=== PATIENT | female | born 1990 ===

== ENCOUNTER 2023-10-15 10:59 | Emergency (ER) | payer OTHER, SELFPAY ==
--- NOTE | ~2023-10-15 | US_ITS ---
EXAMINATION: US OBSTETRICAL ULTRASOUND CLINICAL INFORMATION: Abdominal pain and cramping with question of miscarriage COMPARISON: None available. LMP: Unsure. Gestational age by maternal dates cannot be calculated. Estimated date of delivery by maternal dates cannot be calculated. TECHNIQUE: Transabdominal ultrasound was performed FINDINGS: A gestational sac is present with smaller than normal volume of fluid. A pole is seen with a crown-rump length of 2.4 cm which corresponds to a gestational age of 9 weeks 1 day with an VICTORIANO of 05/18/2024. However, heart activity or motion is not detected. In addition, a large area of subchorionic hemorrhage is seen. The right ovary measures 2.7 x 1.1 x 1.8 cm and appears normal. Left ovary measures 4.3 x 2.6 x 2.8 cm and contains a benign 2.0 cm cyst. US/US OB <= 14 weeks fetus IMPRESSION: A pole is seen with no heartbeat detected and no motion is seen. Based upon the size and estimated age of 9 weeks 1 day, these should most certainly be present. There is a subchorionic hemorrhage present. Findings are consistent with intrauterine demise.
[2023-10-15 11:30] VITALS: BP 111/73; PULSE 80; RESP 17; TEMP 36.8; O2SAT 100; BMI 20.3
--- NOTE | 2023-10-15 11:47 | ED_ITS ---
HPI - General Adult General Chief complaint: OB Stated complaint: miscarraige? Time Seen by Provider: 10/15/23 16:36 Source: patient Mode of arrival: ambulatory Limitations: no limitations History of Present Illness ED Provider: German Cooney PA-C HPI narrative: 33 yo female A1 presents to the ED for known miscarriage and wants evaluation. patient states she is and last week at [facility] ultrasound showed an IUP with no heart rate. Patient now lives in [facility] so came to the ED for evaluation. patient states no vaginal bleeding. patient states mild lower abdominal crmaping that resolved. Related Data Allergies Allergy/AdvReac Type Severity Reaction Status Date / Time No Known Allergies Allergy Verified 10/15/23 11:33 Review of Systems 2 Review of Systems: known miscarraige. resolved lower abdominal cramping. Yes all other systems are reviewed and are negative Physical Exam ED Vital Signs: Vital Signs - 24 hr 10/15/23 11:30 10/15/23 18:24 Temperature 98.3 F 98.3 F Pulse Rate 80 80 Respiratory Rate 17 17 Blood Pressure 111/73 111/73 Pulse Oximetry 100 100 Oxygen Delivery Method Room Air Room Air BMI result Body Mass Index 20.3 Const General: cooperative, healthy appearing, comfortable, no acute distress, well developed, alert, awake and Physically active Orientation/consciousness: patient oriented x3 HENMT Head: Yes normal to inspection, Yes No palpable skull fracture present, Yes normocephalic and Yes atraumatic Eyes General: appearance normal, both eyes and all related structures Neck Neck: Yes normal visual inspection, Yes full ROM, Yes no lymphadenopathy, Yes no meningeal signs, Yes trachea midline, Yes supple, No anterior neck swelling and No tender Chest Chest palpation & inspection: normal inspection of the chest and normal palpation of entire chest wall Resp Effort & Inspection: normal respiratory effort and able to speak in complete sentences Auscultation: clear to auscultation bilaterally Cardio Jugular venous distension: no JVD Heart sounds: S1 normal heart sound present and S2 normal heart sound present GI Other: negative vaginal bleeding. cervical os is closed. Inspection: Yes normal to inspection Palpation (GI): Soft to palpation, not firm, nontender, no guarding and not rigid General: Yes no CVA tenderness External Female Exam: normal external appearance Speculum Exam - Vagina: normal appearance of the vagina Speculum Exam - Cervix: normal appearance of the cervix Bimanual exam- vagina & uterus: normal bimanual exam Back/Spine/Pelvis Back: no CVA tenderness and No back tenderness Skin General skin exam: no rashes or lesions noted, elasticity normal and turgor normal Neuro General: patient oriented x3, gait normal, tone normal, moves all extremities, Normal light touch and pain sensation, no meningeal signs, no focal motor deficits, CN's II-XI intact bilaterally and normal sensation to monofilament Extrem General: Yes normal to inspection, Yes full ROM and Yes capillary refill normal Psych Appearance: grossly normal, well kempt and not disheveled Course Course Course Narrative: RME: DOne by DEMETRI Cooney. 33-year-old female who is was informed last week that she had a miscarriage in [place]. Patient having abdominal cramping so she came to the ED to be evaluated. Patient was not able to have follow-up. Patient denies any vaginal bleeding. Labs repeat ultrasound ordered. Medical Decision Making Medical Decision Making [facility] Narrative: 33-year-old G3, P2, A1 about 9 weeks presents to ED for evaluation for a miscarriage. Patient was informed last week and [place] that she had miscarriage in the baby had no heartbeat. Patient states mild abdominal cramping that resolved. Patient states since she lives now in [place] and came to the ED to be evaluated. Abdomen exam benign. Pelvic exam negative for any vaginal bleeding. Cervical os is closed. Negative for adnexal tenderness. Patient is hemodynamically stable. Case discussed with Dr. Francois he recommends patient be discharged and follow-up with his clinic. He states patient should call his office tomorrow to make an appointment to discuss medical versus surgical management. Patient explained worrisome signs and informed to return to the ED immediately. Ultrasound shows demise Differential Diagnosis Differential Diagnoses: The differential diagnosis associated with the presentation includes ( demise, threatened , complete , UTI) Consult Healthcare Provider Management of the patient was discussed with: Front Desk Assistant (Dr. Francois) Lab Data [facility] Lab Attestation statement: I reviewed the patient's lab results. 10/15/23 12:17 10/15/23 12:17 Labs: Lab Results 10/15/23 10/15/23 10/15/23 Range/Units 12:17 12:18 12:19 WBC 4.9 (4.8-10.8) X10*3/uL RBC 3.91 L (4.20-5.50) X10*6/uL Hgb 11.1 L (12.0-16.0) g/dl Hct 33.5 L (37.0-47.0) % MCV 85.7 (80.0-98.0) fL MCH 28.4 (27.0-33.0) pg MCHC 33.1 (31.0-35.0) g/dl RDW 13.2 (11.0-16.0) % Plt Count 332 (160-400) X10*3/uL MPV 8.9 L (9.4-12.3) fL Immature Gran % (Auto) 0.2 (0.0-0.4) % Neut % (Auto) 48.7 (45-73) % Lymph % (Auto) 39.4 (20-40) % [place] % (Auto) 8.7 (2-11) % Eos % (Auto) 1.6 (0-4) % Baso % (Auto) 1.4 (0-2) % Lymph # (Auto) 1.9 (1.2-4.9) X10*3/uL [place] # (Auto) 0.4 (0.1-1.2) X10*3/uL Eos # (Auto) 0.1 (0.0-0.4) X10*3/uL Baso # (Auto) 0.1 (0.0-0.2) X10*3/uL Abs Immat Gran (auto) 0.01 (0.00-0.03) X10*3/uL Absolute Neuts (auto) 2.4 (2.0-8.3) x10*3/uL Absolute Nucleated RBC 0.000 (0.0-0.012) X10*3/uL Nucleated RBC % (auto) 0.0 (0.0-0.2) /100WBC PT 13.1 (11.1-13.3) SEC INR 1.1 (0.9-1.1) APTT 30.8 (26.0-36.8) SEC Sodium 138 (135-145) mmol/L Potassium 3.6 (3.3-5.1) mmol/L Chloride 108 (96-108) mmol/L Carbon Dioxide 23 (22-29) mmol/L Anion Gap 11 L (12-20) BUN 4 L (9-16) mg/dL Creatinine 0.63 (0.5-1.4) mg/dL Estim Creat Clear Calc 110.0 Estimated GFR > 60 Random Glucose 85 (60-115) mg/dL Calcium 9.6 (8.4-10.2) mg/dL Total Bilirubin 0.5 (0.0-1.0) mg/dL AST 15 (5-31) U/L ALT 10 (0-31) U/L Alkaline Phosphatase 64 (39-117) U/L Total Protein 7.4 (6.5-8.0) g/dL Albumin 4.5 (3.5-5.0) g/dL Beta HCG, Quant 25225 mIU/mL Hold Red Top See Note Urine Color Yellow Urine Appearance Clear Urine pH 7.0 (5.0-9.0) Ur Specific [place] 1.010 (1.005-1.025) Urine Protein Negative (Neg-Trace) mg/dL Urine Glucose (UA) Negative (Negative) mg/dL Urine Ketones Negative (Negative) mg/dL Urine Blood Negative (Negative) Urine Nitrite Negative (Negative) Ur Leukocyte Esterase Negative (Negative) Urine Test POSITIVE H (NEGATIVE) Blood Type O Positive Independent Interpretation I performed an independent interpretation of an: Ultrasound Radiology Impression Discussion of test interpretation with radiology: I have reviewed the radiologist's reading. Independent Historian Clinical information obtained from an independent historian. History obtained from or confirmed by: Other (Patient) External Record Review External record reviewed: Other (Prior visits) Discharge Plan Discharge Clinical Impression: demise due to miscarriage Patient Disposition: Home, Self-Care Instructions: Miscarriage (ED) Additional Instructions: Call Dr. Francois's office tomorrow to make an appointment. Return to the ED immediately for any abdominal pain, vaginal bleeding, fever, chills, nausea, vomiting, weakness, or any other concerning symptoms. US/US OB <= 14 weeks fetus IMPRESSION: A pole is seen with no heartbeat detected and no motion is seen. Based upon the size and estimated age of 9 weeks 1 day, these should most certainly be present. There is a subchorionic hemorrhage present. Findings are consistent with intrauterine demise. Referrals: Ben Francois MD [Physician] - (Intro demise 9 weeks) Interventions: ED Discharge Assessment Last Done: 10/15/23 18:24 Discharge Date/Time: 10/15/23 18:25 Print Language: Ana Parham
[2023-10-15 12:28] LABS: MANUAL DIFF FLAG NO
[2023-10-15 12:35] LABS: Basophils Absolute Auto 0.1 X10*3/uL (0.0-0.2); Basophils Percent Auto 1.4 % (0-2); Eosinophils Absolute Auto 0.1 X10*3/uL (0.0-0.4); Eosinophils Percent Auto 1.6 % (0-4); Hematocrit 33.5 % (37.0-47.0); Hemoglobin 11.1 g/dl (12.0-16.0); Imm Gran Abs Auto 0.01 X10*3/uL (0.00-0.03); Imm Gran Pct Auto 0.2 % (0.0-0.4); Lymphocytes Absolute Auto 1.9 X10*3/uL (1.2-4.9); Lymphocytes Percent Auto 39.4 % (20-40); Mean Corpuscular HGB Conc 33.1 g/dl (31.0-35.0); Mean Corpuscular Hemoglobin 28.4 pg (27.0-33.0); Mean Corpuscular Volume 85.7 fL (80.0-98.0); Mean Platelet Volume 8.9 fL (9.4-12.3); Monocytes Absolute Auto 0.4 X10*3/uL (0.1-1.2); Monocytes Percent Auto 8.7 % (2-11); Neutrophils Absolute Auto 2.4 x10*3/uL (2.0-8.3); Neutrophils Percent Auto 48.7 % (45-73); Platelet Count 332 X10*3/uL (160-400); Red Blood Count 3.91 X10*6/uL (4.20-5.50); Red Cell Distribution Width 13.2 % (11.0-16.0); White Blood Count 4.9 X10*3/uL (4.8-10.8)
[2023-10-15 12:36] LABS: UPreg QC Valid YES; Urine Pregnancy POSITIVE (NEGATIVE)
[2023-10-15 12:37] LABS: Appearance Urine Clear; Color Urine Yellow; Glucose Urine UA Negative (Negative); Leukocyte Esterase Urine Negative (Negative); Nitrite Urine Negative (Negative); Urine Blood Negative (Negative); Urine Ketones Negative (Negative); Urine Protein Negative (Neg-Trace)
[2023-10-15 12:38] LABS: INTERNATIONAL NORM RATIO 1.1 (0.9-1.1); Prothrombin Time 13.1 SEC (11.1-13.3)
[2023-10-15 12:41] LABS: Partial Thromboplastin Time 30.8 SEC (26.0-36.8)
[2023-10-15 12:58] LABS: Alanine Aminotransferase 10 U/L (0-31); Albumin Level 4.5 g/dL (3.5-5.0); Alkaline Phosphatase 64 U/L (39-117); Anion Gap 11 (12-20); Aspartate Amino Transferase 15 U/L (5-31); Bilirubin Total 0.5 mg/dL (0.0-1.0); Blood Urea Nitrogen 4 mg/dL (9-16); Calcium 9.6 mg/dL (8.4-10.2); Carbon Dioxide 23 mmol/L (22-29); Chloride 108 mmol/L (96-108); Estimated Glomerular Filt Rate > 60; Glucose Random 85 mg/dL (60-115); Potassium 3.6 mmol/L (3.3-5.1); Sodium 138 mmol/L (135-145); Total Protein 7.4 g/dL (6.5-8.0)
[2023-10-15 13:35] LABS: HCG Quantitative 44952 mIU/mL
--- NOTE | 2023-10-15 18:08 | PM.GYNCN ---
HALF SOLE FITTER - CN: HPI Data of Consult Consult date: 10/15/23 Primary Care Provider: Unknown Physician Consult Narrative Narrative: I was consulted on Kaylee Carias who is a 33 year old female 33-year-old female was recently diagnosed a week ago with missed in [place] in the emergency room but could not have any follow-up care now she moved to [place] , presented emergency room for follow-up. The patient is experiencing mild pelvic cramping with no vaginal bleeding. No other concerns blood type O positive. cc:: CC: [facility] Social History Social History Advance Directives: No Advance Directives Information Provided: No Do you have a plan to hurt others: No Plan Meds Allergies Allergy/AdvReac Type Severity Reaction Status Date / Time No Known Allergies Allergy Verified 10/15/23 11:33 HALF SOLE FITTER Physical Exam Vitals Vital signs: Temp Pulse Resp BP Pulse Ox O2 Del Method 98.3 F 80 17 111/73 100 Room Air 10/15/23 11:30 10/15/23 11:30 10/15/23 11:30 10/15/23 11:30 10/15/23 11:30 10/15/23 11:30 BMI result Body Mass Index 20.3 Additional Comments: Reported by DEMETRI Powell in the emergency room as the following: Abdomen soft nontender Pelvic exam closed cervix no vaginal bleeding, no cervical motion tenderness adnexal or uterine tenderness HALF SOLE FITTER - Results Labs 10/15/23 12:17 10/15/23 12:17 Labs: Short CBC 10/15/23 Range/Units 12:17 WBC 4.9 (4.8-10.8) X10*3/uL Hgb 11.1 L (12.0-16.0) g/dl Hct 33.5 L (37.0-47.0) % Plt Count 332 (160-400) X10*3/uL BMP 10/15/23 12:17 Sodium 138 Potassium 3.6 Chloride 108 Carbon Dioxide 23 BUN 4 L Creatinine 0.63 Calcium 9.6 Liver Function 10/15/23 Range/Units 12:17 Total Bilirubin 0.5 (0.0-1.0) mg/dL AST 15 (5-31) U/L ALT 10 (0-31) U/L Alkaline Phosphatase 64 (39-117) U/L Albumin 4.5 (3.5-5.0) g/dL Urine 10/15/23 Range/Units 12:19 Urine Color Yellow Urine Appearance Clear Urine pH 7.0 (5.0-9.0) Ur Specific [place] 1.010 (1.005-1.025) Urine Protein Negative (Neg-Trace) mg/dL Urine Glucose (UA) Negative (Negative) mg/dL Urine Test POSITIVE H (NEGATIVE) Imaging US - abdomen: Radiologist's impression: ITS Impressions Ultrasound 10/15/23 13:26 IMPRESSION: A pole is seen with no heartbeat detected and no motion is seen. Based upon the size and estimated age of 9 weeks 1 day, these should most certainly be present. There is a subchorionic hemorrhage present. Findings are consistent with intrauterine demise. Assessment and Plan (1) Missed : Status: Acute Recommended the following to DEMETRI Blanca: GC/CT to be collected, the patient needs close follow-up within 24-48 hours in the outpatient office to discuss options of treatment, instructions to be given to patient to come back to emergency room in case of vaginal bleeding and pelvic pain, fever above 100.4 I spent a total of 20 minutes reviewing the chart, communicating to the emergency room provider and documenting in the medical record
[2023-10-15 18:24] VITALS: BP 111/73; PULSE 80; RESP 17; TEMP 36.8; O2SAT 100
[2023-10-16 04:03] LABS: CT PCR NOT DETECTED (Not Detect.); NG PCR NOT DETECTED (Not Detect.)
== END 2023-10-15 18:25 | disposition home or self-care (01) ==
PROVIDERS: Physician Assistant; Emergency Provider Student in an Organized Health Care Education/Training Program
DX: O02.1 Missed abortion (principal); Z79.899 Other long term (current) drug therapy
CPT/HCPCS: 36415; 76801; 80053; 81003; 81025; 84702; 85025; 85610; 85730; 86900; 86901; 87491; 87591; 99283; 99284

== ENCOUNTER 2023-10-22 13:50 | Outpatient (AMB) | payer OTHER, SELFPAY ==
[2023-10-22 13:53] VITALS: BP 116/68; BMI 20.2
--- NOTE | 2023-10-22 13:53 | MHC.OFFVIS ---
Vital Signs 10/22/23 13:53 Height 5 ft 5 in Weight 121 lb 4.068 oz BMI 20.2 BP 116/68 Intake Visit Reasons: ER follow up Communication Equipment Repairer Required: Yes Communication Equipment Repairer Language: Cook Islander Prasad Communication Equipment Repairer Services: Communication Equipment Repairer Present (Hello Music) Communication Equipment Repairer Name: Viral # [id number] Information Interpreted: non-clinical & clinical Accompanied by: Self / Same As Patient Allergies No Known Allergies Allergy (Verified 10/22/23 13:54) HPI Comments Details: 33 year old female 33-year-old female was presented emergency room 10/14 and recently diagnosed 2 weeks prior to presentation to emergency room with missed in [place] in the emergency room but could not have any follow-up care now she moved to [place] , presented emergency room for follow-up. LMP 1st week of July 2023 making her by to date at 14 and 4 days of gestation The patient is experiencing mild pelvic cramping with no vaginal bleeding. No other concerns blood type O positive. Ultrasound done on 10/14 showed the following: A gestational sac is present with smaller than normal volume of fluid. A pole is seen with a crown-rump length of 2.4 cm which corresponds to a gestational age of 9 weeks 1 day with an VICTORIANO of 05/18/2024. However, heart activity or motion is not detected. In addition, a large area of subchorionic hemorrhage is seen. The right ovary measures 2.7 x 1.1 x 1.8 cm and appears normal. Left ovary measures 4.3 x 2.6 x 2.8 cm and contains a benign 2.0 cm cyst. Repeat pelvic ultrasound done today showed the following: There is a single intrauterine gestational sac at the fundal endometrium with visible yolk sac and embryo. Similar large subchorionic hematoma, surrounding greater than 50% of the circumference of the gestational sac. HR: Not detected CRL (crown rump length): 2.11 cm (8 weeks 6 days +/- 4 days). VICTORIANO (estimated date of delivery): 05/27/2024 +/- 4 days. MATERNAL ADNEXA: The right maternal ovary measures 3.0 x 1.9 x 1.3 cm. Normal size and appearance The left maternal ovary measures 4.2 x 3.4 x 2.3 cm. Renal size and appearance with a dominant, 2.4 cm likely physiologic ovarian follicle. There is no significant maternal adnexal mass. No maternal pelvic ascites. GC/CT were negative PFSH Social History Household Members: Spouse and Children Housing: Apartment Alcohol intake: never Patient Tobacco Use Status: Never used Tobacco Current occupational status: unemployed Sexual orientation: Straight/Heterosexual Gender identity: Female Female Reproductive History Menstrual Date of last menstrual period: 07/12/23 Total pregnancies: 3 Full term: 2 Number of Living Children: 2 Ab spontaneous: 1 Physical Exam Vital Signs: Last Vital Signs BP 116/68 10/22/23 13:53 BMI result Body Mass Index 20.2 Assessment & Plan Assessment & Plan (1) Missed : Code(s): O02.1 - Missed Category: Medical Plan: CBC, platelets, PT, PTT fibrinogen within normal Since the patient gestational age by date is 14 weeks and 4 days of gestation but by ultrasound is 10 weeks and 1 week of gestation but ultrasound might be falsely estimating a lower gestation age because of abnormal findings of this , in case the patient is 14 weeks and 4 days of gestation, she is not a candidate for misoprostol /mifepristone and since in most cases gestational age determination by LMP is more accurate, I recommended to the patient to be referred to family Clinic at [facility] for further management 10/23/2023 received a message back from family planning Clinic at [facility] that were no available appointments, recommended for the pt to go to [facility]. Discussed the case with Mallorie Xie CNM in [facility] who accepted the pt. Called the patient and Instructed the patient to go [facility] immediately for further management without any delay since she has been diagnosed with missed AB for the last 3 weeks , the patient verbalized understanding agreed with the plan especially the urgency of her clinical situation and agreed with the plan. Communication was via phone brake rider Siddharth# [id number] Orders: Orders Complete Blood Count no Diff 10/22/23 O02.1 - Missed Fibrinogen 10/22/23 O02.1 - Missed Prothrombin Time INR 10/22/23 O02.1 - Missed Mixing Study (PT/PTT) 10/22/23 O02.1 - Missed US OB <= 14 weeks fetus 10/22/23 O02.1 - Missed Coding Level of Care Code New Pt Level 3 (33056) Diagnoses Missed O02.1
== END 2023-10-23 08:17 | disposition home or self-care (01) ==
LOC: HO.HWS 13:50
PROVIDERS: Visit Provider Obstetrics & Gynecology
DX: O02.1 Missed abortion (principal)
CPT/HCPCS: 99203

== ENCOUNTER → 2023-10-22 13:50 | Outpatient (BNVA) | payer OTHER, SELFPAY | PROVIDERS: Visit Provider Obstetrics & Gynecology ==

== ENCOUNTER 2023-10-22 14:45 | Outpatient (REF) | payer OTHER, SELFPAY ==
--- NOTE | ~2023-10-22 | US_ITS ---
EXAMINATION: US OBSTETRICAL ULTRASOUND CLINICAL INFORMATION: Missed COMPARISON: First trimester OB ultrasound 10/15/2023. LMP: Not provided. TECHNIQUE: Ultrasound of the maternal pelvis is performed using transabdominal transducer. M-mode Doppler is also performed. FINDINGS: There is a single intrauterine gestational sac at the fundal endometrium with visible yolk sac and embryo. Similar large subchorionic hematoma, surrounding greater than 50% of the circumference of the gestational sac. HR: Not detected CRL (crown rump length): 2.11 cm (8 weeks 6 days +/- 4 days). VICTORIANO (estimated date of delivery): 05/27/2024 +/- 4 days. MATERNAL ADNEXA: The right maternal ovary measures 3.0 x 1.9 x 1.3 cm. Normal size and appearance The left maternal ovary measures 4.2 x 3.4 x 2.3 cm. Renal size and appearance with a dominant, 2.4 cm likely physiologic ovarian follicle. There is no significant maternal adnexal mass. No maternal pelvic ascites. US/US OB <= 14 weeks fetus IMPRESSION: Redemonstrated findings consistent with intrauterine embryonic demise and associated large subchorionic hematoma.
[2023-10-22 15:57] LABS: Hemoglobin 12.1 g/dl (12.0-16.0); Mean Corpuscular HGB Conc 32.7 g/dl (31.0-35.0); Mean Corpuscular Hemoglobin 28.6 pg (27.0-33.0); Mean Corpuscular Volume 87.5 fL (80.0-98.0); Mean Platelet Volume 10.3 fL (9.4-12.3); Platelet Count 289 X10*3/uL (160-400); Red Blood Count 4.23 X10*6/uL (4.20-5.50); Red Cell Distribution Width 13.2 % (11.0-16.0); White Blood Count 3.9 X10*3/uL (4.8-10.8)
[2023-10-22 16:03] LABS: Fibrinogen 455 MG/DL (259-690); INTERNATIONAL NORM RATIO 1.1 (0.9-1.1); Prothrombin Time 12.9 SEC (11.1-13.3)
== END 2023-10-22 14:46 | disposition home or self-care (01) ==
LOC: HO.US 14:45
PROVIDERS: Visit Provider Obstetrics & Gynecology
DX: O02.1 Missed abortion (principal)
CPT/HCPCS: 36415; 76801; 85027; 85384; 85610; 85611; 85732; 99202

== ENCOUNTER 2024-01-07 09:43 | Emergency (ER) | payer MEDICAID, SELFPAY ==
--- NOTE | 2024-01-07 | ECG_ITS ---
Test Reason : dizziness Blood Pressure : / mmHG Vent. Rate : 062 BPM Atrial Rate : 062 BPM P-R Int : 136 ms QRS Dur : 078 ms QT Int : 382 ms P-R-T Axes : 034 034 031 degrees QTc Int : 387 ms Normal sinus rhythm Normal ECG No previous ECGs available Referred By: Generic ED Physician Electronically Signed By:SIMA VILA
[2024-01-07 10:40] VITALS: BP 98/57; PULSE 68; RESP 18; TEMP 36.4; O2SAT 98; BMI 20.6
[2024-01-07 11:07] LABS: MANUAL DIFF FLAG NO
[2024-01-07 11:18] LABS: Basophils Absolute Auto 0.1 X10*3/uL (0.0-0.2); Basophils Percent Auto 1.9 % (0-2); Eosinophils Absolute Auto 0.1 X10*3/uL (0.0-0.4); Eosinophils Percent Auto 2.2 % (0-4); Hematocrit 32.8 % (37.0-47.0); Hemoglobin 10.6 g/dl (12.0-16.0); Lymphocytes Absolute Auto 1.8 X10*3/uL (1.2-4.9); Lymphocytes Percent Auto 50.1 % (20-40); Mean Corpuscular HGB Conc 32.3 g/dl (31.0-35.0); Mean Corpuscular Hemoglobin 26.8 pg (27.0-33.0); Mean Corpuscular Volume 82.8 fL (80.0-98.0); Mean Platelet Volume 8.6 fL (9.4-12.3); Monocytes Absolute Auto 0.4 X10*3/uL (0.1-1.2); Monocytes Percent Auto 10.4 % (2-11); Neutrophils Absolute Auto 1.3 x10*3/uL (2.0-8.3); Neutrophils Percent Auto 35.4 % (45-73); Platelet Count 380 X10*3/uL (160-400); Red Blood Count 3.96 X10*6/uL (4.20-5.50); Red Cell Distribution Width 13.7 % (11.0-16.0); White Blood Count 3.7 X10*3/uL (4.8-10.8)
[2024-01-07 11:25] LABS: Anion Gap 7 (12-20); Blood Urea Nitrogen 7 mg/dL (9-16); Calcium 9.2 mg/dL (8.4-10.2); Carbon Dioxide 28 mmol/L (22-29); Chloride 110 mmol/L (96-108); Creatinine Clr Calc Pharmacy 109.9; Estimated Glomerular Filt Rate > 60; Glucose Random 93 mg/dL (60-115); Potassium 3.6 mmol/L (3.3-5.1); Sodium 141 mmol/L (135-145)
--- NOTE | 2024-01-07 12:21 | ED.DIZZY ---
HPI - Dizziness General Chief Complaint: Dizziness Stated Complaint: Vertigo Time Seen by Provider: 01/07/24 12:07 Source: patient, old records reviewed and diamond blender Mode of arrival: ambulatory Limitations: no limitations History of Present Illness ED Provider: Juan Carlos Dobbs PA-C HPI Narrative: 33 yo Micronesian Creole speaking female with history of recent missed requiring treatment at [facility] in October who presents to the ER for evaluation of intermittent lightheadedness and dizziness for the last 2 months. She reports since the she has had heavier than normal periods. She wants to get back on the control injection. She reports not having an OBGYN at this time. She states the dizziness and light headedness episodes do not occur every day, they occur mostly with body position changes such as standing up quickly. It resolves with rest. No associated vision changes, numbness, weakness. No chest pain or shortness of breath. She also reports increased acid in her stomach with intermittent epigastric pains. No nausea, vomiting, diarrhea. She has been having normal bowel movements. She is not taking any medications for this. MD elicited complaint: dizziness and lightheadedness Onset (ago): month(s) Timing: episodic Severity: moderate Description: lightheadedness Context: change in body position History of similar symptoms: Yes Exacerbating factors: change in body position Relieving factors: rest and lying down Associated symptoms: abnormal vaginal bleeding Related Data Previous Rx's ?Medication ?Instructions ?Recorded famotidine 20 mg tablet (Pepcid) 20 mg PO DAILY #30 tabs 01/07/24 Allergies Allergy/AdvReac Type Severity Reaction Status Date / Time No Known Allergies Allergy Verified 01/07/24 10:41 Review of Systems Review of Systems: Yes all other systems are reviewed and are negative [facility] Social History Social History Household Members: Spouse and Children Housing: Apartment Alcohol intake: never Patient Tobacco Use Status: Never used Tobacco Smoked in Last 30 Days: No Use of substances other than those prescribed or required for medical reasons: No Advance Directives: No Advance Directives Information Provided: Yes Do you have a plan to hurt others: No Plan Current occupational status: unemployed Sexual orientation: Straight/Heterosexual Gender identity: Female Physical Exam Vital Signs: Vital Signs: Last Vital Signs Temp 97.6 F 01/07/24 10:40 Pulse 70 01/07/24 12:34 Resp 18 01/07/24 10:40 BP 111/59 L 01/07/24 12:34 Pulse Ox 98 01/07/24 10:40 O2 Del Method Room Air 01/07/24 10:40 BMI result Body Mass Index 20.6 Appearance: Alert. Oriented X3. No acute distress. Head: normocephalic, atraumatic. Eyes: Pupils equal, round and reactive to light. EOMI, no nystagmus ENT: Pharynx normal. No tonsillar swelling or exudate. Neck: Normal inspection. Neck supple. CVS: Normal heart rate and rhythm. Pulses normal. Respiratory: No respiratory distress. Breath sounds normal. Abdomen: Soft and nontender. +BS x4 Skin: Skin warm and dry. Normal skin color. Normal skin turgor. No rashes. Extremities: No lower extremity edema. No joint swelling. Neuro/psych: Oriented X 3. No motor deficit. No sensory deficit. CN II-XII intact. Normal speech and cognition. Medications Administered Discontinued Medications Generic Name Dose Route Start Last Admin Trade Name Freq PRN Reason Stop Dose Admin Meclizine HCl 50 mg 01/07/24 12:07 01/07/24 12:29 Meclizine Hcl 25 Mg Tablet PO 01/07/24 12:08 50 mg ONCE ONE Administration Medical Decision Making Medical Decision Making [facility] Narrative: 33-year-old female with recent missed that was treated at [facility] in October presents the ER for evaluation of episodic lightheadedness and dizziness with position changes along with heavy vaginal bleeding since the 2 months ago. She would like to get started back on Depo. Advised her using Micronesian Creole diamond blender that this needs to be arranged with outpatient OBGYN. Will give referral to Dr. Francois who she has seen before. Lab workup today is showing mild normocytic anemia with hemoglobin of 10.6, hematocrit of 32.8. This could explain her mild lightheadedness and dizziness symptoms. No indication for transfusion today. She had negative orthostatic vital signs. No other major metabolic derangement. Her urinalysis is negative for infection and . Examination is otherwise unremarkable and benign We discussed the need for outpatient follow-up for her medical issues. Referral for Dr Francois provided, along with other local primary care doctors in the area. All questions were answered. Patient is stable for discharge Differential Diagnosis Differential Diagnoses: The differential diagnosis associated with the presentation includes Vertigo, orthostatic hypotension, anemia, dehydration, GERD, gastritis, PUD, cardiac arrhythmia Lab Data MDM Lab Attestation statement: I reviewed the patient's lab results. Mild anemia, mild leukopenia, no major metabolic derangement or sign of dehydration 01/07/24 11:03 01/07/24 11:03 Labs: Lab Results 01/07/24 01/07/24 Range/Units 11:03 12:31 WBC 3.7 L (4.8-10.8) X10*3/uL RBC 3.96 L (4.20-5.50) X10*6/uL Hgb 10.6 L (12.0-16.0) g/dl Hct 32.8 L (37.0-47.0) % MCV 82.8 (80.0-98.0) fL MCH 26.8 L (27.0-33.0) pg MCHC 32.3 (31.0-35.0) g/dl RDW 13.7 (11.0-16.0) % Plt Count 380 D (160-400) X10*3/uL MPV 8.6 L (9.4-12.3) fL Immature Gran % (Auto) 0.0 (0.0-0.4) % Neut % (Auto) 35.4 L (45-73) % Lymph % (Auto) 50.1 H (20-40) % Smith % (Auto) 10.4 (2-11) % Eos % (Auto) 2.2 (0-4) % Baso % (Auto) 1.9 (0-2) % Lymph # (Auto) 1.8 (1.2-4.9) X10*3/uL Smith # (Auto) 0.4 (0.1-1.2) X10*3/uL Eos # (Auto) 0.1 (0.0-0.4) X10*3/uL Baso # (Auto) 0.1 (0.0-0.2) X10*3/uL Abs Immat Gran (auto) 0.00 (0.00-0.03) X10*3/uL Absolute Neuts (auto) 1.3 L (2.0-8.3) x10*3/uL Absolute Nucleated RBC 0.000 (0.0-0.012) X10*3/uL Nucleated RBC % (auto) 0.0 (0.0-0.2) /100WBC Sodium 141 (135-145) mmol/L Potassium 3.6 (3.3-5.1) mmol/L Chloride 110 H (96-108) mmol/L Carbon Dioxide 28 (22-29) mmol/L Anion Gap 7 L (12-20) BUN 7 L (9-16) mg/dL Creatinine 0.66 (0.5-1.4) mg/dL Estim Creat Clear Calc 109.9 Estimated GFR > 60 Random Glucose 93 (60-115) mg/dL Calcium 9.2 (8.4-10.2) mg/dL Urine Color Yellow Urine Appearance Clear Urine pH 6.5 (5.0-9.0) Ur Specific Spangler 1.025 (1.005-1.025) Urine Protein Negative (Neg-Trace) mg/dL Urine Glucose (UA) Negative (Negative) mg/dL Urine Ketones Trace (Negative) mg/dL Urine Blood Negative (Negative) Urine Nitrite Negative (Negative) Ur Leukocyte Esterase Negative (Negative) Urine Test NEGATIVE (NEGATIVE) Independent Interpretation I performed an independent interpretation of an: EKG Interpretation: EKG with normal sinus rhythm, ventricular rate 62 beats per minute, normal SD interval, normal QTC, no ST segment elevations or depressions External Record Review External record reviewed: Outpatient record, Prior outpatient labs and Prior outpatient radiology Prescription Management I considered prescription management with: Other (Meclizine, iron, control) Social Determinants Patient?s care significantly limited by Social Determinants of Health including: Other Social Determinant of Health (Language barrier, no local providers in the community) Critical Care Time Critical Care Time Critical Care Time: No Discharge Plan Discharge Clinical Impression: Dizziness Anemia Qualifiers: Anemia type: unspecified type Qualified Code(s): D64.9 - Anemia, unspecified Patient Disposition: Home, Self-Care Instructions: Lightheadedness (ED), Anemia (ED) Additional Instructions: Your lab workup was reassuring Your urine test was negative for infection and Take the prescribed medication as needed for your acid in the stomach. Also recommend [id number] Tums Recommend taking a multivitamin with iron. You have mild anemia. For control, recommend following up with OBGYN in the office. Call for an appointment. Until then practice safe sexual practices If you develop new or worsening symptoms call 911 or come back to the ER for further evaluation. Prescriptions: New famotidine [Pepcid] 20 mg tablet 20 mg PO DAILY Qty: 30 0RF Referrals: [facility] [Provider Group] [facility] Family Medicine [Provider Group] [facility] [Provider Group] Ben Francois MD [Physician] - Interventions: ED Discharge Assessment Last Done: 01/07/24 13:42 Discharge Date/Time: 01/07/24 13:43 Print Language: Ana Parham
[2024-01-07] MEDS: Meclizine HCl 25 MG TABLET 50 MG PO (12:29)
[2024-01-07 12:33] VITALS: BP 103/65; BP 112/67; PULSE 64; PULSE 67
[2024-01-07 12:34] VITALS: BP 111/59; PULSE 70
[2024-01-07 12:41] LABS: Appearance Urine Clear; Color Urine Yellow; Glucose Urine UA Negative (Negative); Leukocyte Esterase Urine Negative (Negative); Nitrite Urine Negative (Negative); PH 6.5 (5.0-9.0); Specific Gravity - Urine 1.025 (1.005-1.025); Urine Blood Negative (Negative); Urine Ketones Trace mg/dL (Negative); Urine Protein Negative (Neg-Trace)
[2024-01-07 12:44] LABS: UPreg QC Valid YES; Urine Pregnancy NEGATIVE (NEGATIVE)
[2024-01-07 13:42] VITALS: BP 111/59; PULSE 70; RESP 18; TEMP 36.4
== END 2024-01-07 13:43 | disposition home or self-care (01) ==
PROVIDERS: Emergency Provider Emergency Medicine
DX: R42 Dizziness and giddiness (principal); D64.9 Anemia, unspecified
CPT/HCPCS: 36415; 80048; 81003; 81025; 85025; 93005; 99283; 99284

== ENCOUNTER → 2024-01-07 10:51 | Outpatient (BNV) | payer MEDICAID, SELFPAY | PROVIDERS: Emergency Provider Emergency Medicine; Visit Provider Internal Medicine | DX: R42 Dizziness and giddiness (principal) | CPT/HCPCS: 93010 ==

== ENCOUNTER 2024-05-08 10:17 | Outpatient (REF) | payer MEDICAID, SELFPAY ==
--- NOTE | ~2024-05-08 | XR_ITS ---
EXAMINATION: XR CHEST 2 VIEWS HISTORY: HEMOPTYSIS COMPARISON: There are no prior studies for comparison. FINDINGS: PA and lateral views of the chest are submitted. The lungs are expanded and clear. There is no pleural effusion, pneumothorax, or pulmonary vascular congestion. The heart is normal in size. The bones are intact. XR/XR chest 2V IMPRESSION: Normal examination of the chest. Electronically signed by: Aniket Gomes MD 05/08/2024 10:37 AM TORSTEN
== END 2024-05-08 10:18 | disposition home or self-care (01) ==
LOC: HO.HHCX 10:17
PROVIDERS: Visit Provider Family Medicine
DX: R04.2 Hemoptysis (principal)
CPT/HCPCS: 71046

== ENCOUNTER → 2024-05-08 10:19 | Outpatient (BNV) | payer MEDICAID, SELFPAY | PROVIDERS: Visit Provider Radiology Diagnostic Radiology | DX: R04.2 Hemoptysis (principal) | CPT/HCPCS: 71046 ==

== ENCOUNTER 2024-05-09 08:49 | Outpatient (REF) | payer MEDICAID, SELFPAY ==
--- OUTSIDE RECORDS SUMMARY | 2024-05-09 09:13 | XMS_ITS | Encounter Summary ---
Author Organization [employer] Address [address] [facility] [address] [place] [address] Care Team Providers Care Location Worker Name Role Phone Betty Rodriguez DO Primary Care Provider Reason for Referral * Consultation (STAT) - Pending Review Specialty Diagnoses / Procedures Referred By Humberto andres Referred To Contact Pulmonary Disease Diagnoses Hemoptysis Betty Rodriguez DO [address] [place] [address] Phone: tel: fax: Referral ID Status Reason Start Date Expiration Date Visits Requested Visits Authorized [id number] Pending Review Specialty Services Required 05/08/2024 05/08/2025 1 1 * Imaging (Urgent) - Authorized Specialty Diagnoses / Procedures Referred By Humberto andres Referred To Contact Radiology Diagnoses Hemoptysis Procedures CT Chest w/ Contrast Betty Rodriguez DO [address] [place] [address] Phone: tel: fax: [address] Phone: tel: fax: Referral ID Status Reason Start Date Expiration Date V isits Requested Visits Authorized [id number] Authorized 05/08/2024 05/08/2025 1 1 * Imaging (Routine) - Authorized Specialty Diagnoses / Procedures Referred By Contelizabeth t Referred To Contact Radiology Diagnoses Dizziness Procedures CT Head w/o Contrast Betty Rodriguez DO [address] [place] [address] Phone: tel: fax: [address] Phone: tel: fax: Referral ID Status Reason Start Date Expiration Date V isits Requested Visits Authorized [id number] Authorized 05/08/2024 05/08/2025 1 1 * Imaging (Routine) - Authorized Specialty Diagnoses / Procedures Referred By Contac t Referred To Contact Cardiology Diagnoses Dizziness Procedures Vascular US carotid artery duplex bilateral Betty Rodriguez DO [address] [place] [address] Phone: tel: fax: [address] Phone: tel: fax: Referral ID Status Reason Start Date Expiration Date Visits Requested Visits Authorized [id number] Authorized Perform Procedure 05/08/2024 05/08/2025 1 1 * Imaging (Routine) - Authorized Specialty Diagnoses / Procedures Referred By Contac t Referred To Contact Cardiology Diagnoses Dizziness Procedures Transthoracic Echo (TTE) Complete Betty Rodriguez DO [address] [place] [address] Phone: tel: fax: [address] Phone: tel: fax: Referral ID Status Reason Start Date Expiration Date Visits Requested Visits Authorized [id number] Authorized Perform Procedure 05/08/2024 05/08/2025 1 1 Reason for Visit * Reason Comments Dizziness Headache Encounter Details Date Type Department Care Team (Latest Contact Info) Description 05/08/2024 9:20 AM EST Office Visit [facility] [address] [place] [phone] Dizziness (Primary Dx); Hemoptysis; Heartburn; Anemia, unspecified type; Encounter for other contraceptive management Social History Tobacco Use Types Packs/Day Years Used Date Smoking Tobacco: Never Assessed Comments Unknown Sex and Gender Information Value Date Recorded Sex Assigned at Female 05/08/2024 9:06 AM EST Legal Sex Female 1:46 PM EST Gender Identity Female 05/08/2024 9:06 AM EST Sexual Orientation Straight 05/08/2024 9: 06 AM EST documented as of this encounter Last Filed Vital Signs Vital Sign Reading Time Taken Comments Blood Pressure 110/72 05/08/2024 9:21 AM EST Pulse 85 05/08/2024 9:21 AM EST Temperature 36.8 ??C (98.2 ??F) 05/08/2024 9:19 AM ES T Respiratory Rate 17 05/08/2024 9:19 AM EST Oxygen Saturation 100% 05/08/2024 9:21 AM EST Inhaled Oxygen Concentration - - Weight 63.6 kg (140 lb 3.2 oz) 05/08/2024 9:19 A M EST Height - - Body Mass Index - - documented in this encounter Plan of Treatment Upcoming Encounters Date Type Department Care Team (Late st Contact Info) Description 05/15/2024 10:00 AM EST Office Visit [facility] [address] [place] [phone] Mona Lin CNM [address] [place] [phone] 06/09/2024 9:15 AM EDT Office Visit [facility] [address] [place] [phone] Betty Rodriguez DO [address] [place] [phone] Scheduled Orders Name Type Priority Associated Diagnoses Orde r Schedule T4, Free Lab Routine Dizziness Hemoptysis Heartburn Anemia, unspecified type Encounter for other contraceptive management Expected: 05/08/2024 (Approximate), Expires: 05/08/2025 Lipid Panel, Standard Lab Routine Dizziness Hemoptysis Heartburn Anemia, unspecified type Encounter for other contraceptive management Expected: 05/08/2024 (Approximate), Expires: 05/08/2025 TSH Lab Routine Dizziness Hemoptysis Heartburn Anemia, unspecified type Encounter for other contraceptive management Expected: 05/08/2024 (Approximate), Expires: 05/08/2025 Vitamin D, 25-Hydroxy, Total, Immunoassay Lab Routine Dizziness Hemoptysis Heartburn Anemia, unspecified type Encounter for other contraceptive management Expected: 05/08/2024 (Approximate), Expires: 05/08/2025 Hepatic Function Panel Lab Routine Dizziness Hemoptysis Heartburn Anemia, unspecified type Encounter for other contraceptive management Expected: 05/08/2024 (Approximate), Expires: 05/08/2025 Hemoglobin A1c Lab Routine Dizziness Hemoptysis Heartburn Anemia, unspecified type Encounter for other contraceptive management Expected: 05/08/2024 (Approximate), Expires: 05/08/2025 Basic Metabolic Panel Lab Routine Dizziness Hemoptysis Heartburn Anemia, unspecified type Encounter for other contraceptive management Expected: 05/08/2024 (Approximate), Expires: 05/08/2025 Hepatitis B surface antigen, EIA Lab Routine Dizziness Hemoptysis Heartburn Anemia, unspecified type Encounter for other contraceptive management Expected: 05/08/2024 (Approximate), Expires: 05/08/2025 Chlamydia/N. Gonorrhoeae RNA, TMA, Urogenitial Microbiology Routine Dizziness Hemoptysis Heartburn Anemia, unspecified type Encounter for other contraceptive management Ordered: 05/08/2024 HIV-1/2 Antigen and Antibodies, Fourth Generation, with Reflexes Lab Routine Dizziness Hemoptysis Heartburn Anemia, unspecified type Encounter for other contraceptive management Expected: 05/08/2024 (Approximate), Expires: 05/08/2025 Hepatitis C Antibody with Reflex to HCV, RNA, Quantitative, Real-Time PCR Lab Routine Dizziness Hemoptysis Heartburn Anemia, unspecified type Encounter for other contraceptive management Expected: 05/08/2024, Expires: 05/08/2025 RPR (Monitor) with Reflex to??Titer Lab Routine Dizziness Hemoptysis Heartburn Anemia, unspecified type Encounter for other contraceptive management Expected: 05/08/2024, Expires: 05/08/2025 Hepatitis B Surface Antibody, Qualitative Lab Routine Dizziness Hemoptysis Heartburn Anemia, unspecified type Encounter for other contraceptive management Expected: 05/08/2024 (Approximate), Expires: 05/08/2025 Hepatitis A Antibody, Total Lab Routine Dizziness Hemoptysis Heartburn Anemia, unspecified type Encounter for other contraceptive management Expected: 05/08/2024 (Approximate), Expires: 05/08/2025 Hepatitis B Core Antibody, Total Lab Routine Dizziness Hemoptysis Heartburn Anemia, unspecified type Encounter for other contraceptive management Expected: 05/08/2024 (Approximate), Expires: 05/08/2025 T-SPOT??.TB Lab Routine Dizziness Hemoptysis Heartburn Anemia, unspecified type Encounter for other contraceptive management Expected: 05/08/2024 (Approximate), Expires: 05/08/2025 Vitamin B12 (Cobalamin) and Folate Panel, Serum Lab Routine Dizziness Hemoptysis Heartburn Anemia, unspecified type Encounter for other contraceptive management Expected: 05/08/2024, Expires: 05/08/2025 Ferritin Lab Routine Dizziness Hemoptysis Heartburn Anemia, unspecified type Encounter for other contraceptive management Expected: 05/08/2024, Expires: 05/08/2025 Iron And Total Iron Binding Capacity Lab Routine Dizziness Hemoptysis Heartburn Anemia, unspecified type Encounter for other contraceptive management Expected: 05/08/2024, Expires: 05/08/2025 CBC auto differential Lab Routine Dizziness Hemoptysis Heartburn Anemia, unspecified type Encounter for other contraceptive management Expected: 05/08/2024 (Approximate), Expires: 05/08/2025 XR Chest 2 Views Imaging STAT Hemoptysis Expected: 05/08/2024, Expires: 05/08/2025 Transthoracic Echo (TTE) Complete Echocardiography Routine Dizziness Expected: 05/08/2024 (Approximate), Expires: 05/08/2026 CT Head w/o Contrast Imaging Routine Dizziness Expected: 05/08/2024, Expires: 05/08/2025 CT Chest w/ Contrast Imaging Urgent Hemoptysis Expected: 05/08/2024, Expires: 05/08/2025 Scheduled Referrals Name Type Priority Associated Diagnoses Order Schedule Referral to Pulmonology Outpatient Referral STAT Hemoptysis Expected: 05/08/2024 (Approximate), Expires: 05/08/2025 documented as of this encounter Visit Diagnoses Diagnosis Dizziness- Primary Dizziness and giddiness Hemoptysis Heartburn Anemia, unspecified type Encounter for other contraceptive management documented in this encounter Care Teams Location Worker Relationship Specialty Start Date End Date Betty Rodriguez DO [address] [place] [address] PCP - General Family Medicine 05/08/24 documented as of this encounter
--- OUTSIDE RECORDS SUMMARY | 2024-05-09 09:13 | XMS_ITS | Clinical Summary ---
Author Organization [employer] Address [address] [place] [address] [address] [place] [address] Care Team Providers Care Air Grinder Name Role Phone Betty Rodriguez DO Primary Care Provider Allergies No known active allergies Medications omeprazole OTC (PriLOSEC OTC) 20 MG EC tablet Take 1 tablet (20 mg) by mouth before breakfast. Do not crush, chew, or split. 30 tablet 3 05/08/2024 Active Active Problems No known active problems Encounters Date Type Department Care Team Description 05/08/2024 9:20 AM EST Office Visit [facility] [address] [place] [address] [phone] Dizziness (Primary Dx); Hemoptysis; Heartburn; Anemia, unspecified type; Encounter for other contraceptive management 02/12/2024 Telephone [facility] [address] [place], [place] [phone] Claudy Moore MD new patient appt from Last 3 Months Social History Tobacco Use Types Packs/Day Years Used Date Smoking Tobacco: Never Assessed Comments Unknown Sex and Gender Information Value Date Recorded Sex Assigned at Female 05/08/2024 9:06 AM EST Legal Sex Female 1:46 PM EST Gender Identity Female 05/08/2024 9:06 AM EST Sexual Orientation Straight 05/08/2024 9: 06 AM EST Last Filed Vital Signs Vital Sign Reading [...] - - Body Mass Index - - Plan of Treatment Upcoming Encounters Date Type Department Care Team (Late st Contact Info) Description 05/15/2024 10:00 AM EST Office Visit [facility] [address] [place], [place] [phone] Mona Lin CNM [address] [place], [place] [phone] 06/09/2024 9:15 AM EDT Office Visit [facility] [address] [place], [place] [phone] Betty Rodriguez DO [address] [place], [place] [phone] Health Maintenance Due Date Last Done Comments Depression Screening 1989 HIV Screening 1989 SDOH Screening 1989 Alcohol/Substance Use Screening 2001 Tobacco Screening 2001 Family Planning (PISQ) 2004 Hepatitis C Screening 2007 DTaP/Tdap/Td Vaccines (1 - Tdap) 2008 Hepatitis B Vaccines (1 of 3 - 19+ 3-dose series) 2008 Pap Smear 2010 Cervical Cancer Screening 2019 HPV/Cotest 2019 COVID-19 Vaccine ( - 2023-2 5 season) 2023 Influenza Vaccine (#1) 2023 Zoster Vaccines (1 of 2) 2039 RSV Patients and Pa tients Aged 60 years or older (1 - 1-dose 75+ series) 2064 HIB Vaccines Aged Out No longer eligi ble based on patient's age to complete this topic HPV Vaccines Aged Out No longer eligi ble based on patient's age to complete this topic Hepatitis A Vaccines Aged Out No long er eligible based on patient's age to complete this topic IPV Vaccines Aged Out No longer eligi ble based on patient's age to complete this topic Meningococcal Vaccine Aged Out No martin felipa eligible based on patient's age to complete this topic Pneumococcal Vaccine: Pediat rics (0 to 5 Years) and At-Risk Patients (6 to 49) Years) Aged Out No longer eligible b ased on patient's age to complete this topic RSV under 20 months Aged Out No longe r eligible based on patient's age to complete this topic Rotavirus Vaccines Aged Out No longer eligible based on patient's age to complete this topic [facility] Care Teams Air Grinder Relationship Specialty Start Date End Date Betty Rodriguez DO [address] [place] [address] PCP - General Family Medicine 05/08/24
[2024-05-09 10:59] LABS: MANUAL DIFF FLAG NO
[2024-05-09 11:10] LABS: Basophils Absolute Auto 0.1 X10*3/uL (0.0-0.2); Basophils Percent Auto 2.4 % (0-2); Eosinophils Absolute Auto 0.1 X10*3/uL (0.0-0.4); Eosinophils Percent Auto 2.4 % (0-4); Hematocrit 30.9 % (37.0-47.0); Hemoglobin 9.3 g/dl (12.0-16.0); Lymphocytes Absolute Auto 1.8 X10*3/uL (1.2-4.9); Lymphocytes Percent Auto 54.1 % (20-40); Mean Corpuscular HGB Conc 30.1 g/dl (31.0-35.0); Mean Corpuscular Hemoglobin 23.1 pg (27.0-33.0); Mean Corpuscular Volume 76.7 fL (80.0-98.0); Mean Platelet Volume 9.8 fL (9.4-12.3); Monocytes Absolute Auto 0.3 X10*3/uL (0.1-1.2); Monocytes Percent Auto 10.1 % (2-11); Platelet Count 370 X10*3/uL (160-400); Red Blood Count 4.03 X10*6/uL (4.20-5.50); Red Cell Distribution Width 17.4 % (11.0-16.0); White Blood Count 3.3 X10*3/uL (4.8-10.8)
[2024-05-09 11:15] LABS: Estimated Average Glucose 105 mg/dL; Hemoglobin A1C 87.9044 umol/L; Hemoglobin A1c % 5.3 % (<6.0); Total Hemoglobin (HGBA1C) 2538.6066 umol/L
[2024-05-09 11:45] LABS: Alanine Aminotransferase 19 U/L (0-31); Albumin Level 4.4 g/dL (3.5-5.0); Alkaline Phosphatase 99 U/L (39-117); Anion Gap 11 (12-20); Aspartate Amino Transferase 28 U/L (5-31); Bilirubin Direct 0.2 mg/dL (0.0-0.5); Bilirubin Total 0.5 mg/dL (0.0-1.0); Blood Urea Nitrogen 8 mg/dL (9-16); Calcium 9.2 mg/dL (8.4-10.2); Carbon Dioxide 25 mmol/L (22-29); Chloride 108 mmol/L (96-108); Cholesterol 136 mg/dL (<200); Estimated Glomerular Filt Rate > 60; Glucose Random 87 mg/dL (60-115); HDL Cholesterol 58 mg/dL (>40); Iron 30 mcg/dL (30-160); LDL Cholesterol Calculated 70 mg/dL (<100); Percent Iron Saturation 8 % (15-50); Potassium 3.9 mmol/L (3.3-5.1); Sodium 140 mmol/L (135-145); Total Iron Binding Capacity 368 mcg/dL (228-428); Total Protein 8.3 g/dL (6.5-8.0); Triglycerides 41 mg/dL (<150); Unsaturated Iron Binding 338 ug/dL
[2024-05-09 12:06] LABS: Ferritin 4 ng/mL (10-122); Free T4 (Free Thyroxine) 0.99 ng/dL (0.71-1.85); Thyroid Stimulating Hormone 2.66 uIU/mL (0.32-4.0); Vitamin D 25-OH Total 15.5 ng/mL (>30)
[2024-05-09 12:11] LABS: Folate 9.1 ng/mL (> or = 4.0); Vitamin B12 278 pg/mL (200-900)
[2024-05-09 12:47] LABS: Hepatitis A Antibody IgG REACTIVE (Nonreactive); ~Hepatitis A Antibody IgG 11.28 S/CO (0.00-0.99)
[2024-05-09 12:49] LABS: HBS Num1 2.41 mIU/mL (0-7.99); HBsAGNum1 0.35 S/CO (0.00-0.99); HIV AB/AG Nonreactive (Nonreactive); HIV Num 1 0.06 S/CO (0.00-0.99); Hepatitis B Core Antibody Nonreactive (Nonreactive); Hepatitis B Surface Antigen Negative (Negative); ~HepC Num1 0.15 S/CO (0.00-0.79); ~Hepatitis B Surface Antibody NONREACTIVE (Nonreactive); ~Hepatitis C Antibody Nonreactive (Nonreactive)
[2024-05-09 15:28] LABS: CT PCR NOT DETECTED (Not Detect.); NG PCR NOT DETECTED (Not Detect.)
[2024-05-11 15:39] LABS: RPR Rapid Plasma Reagin NON-REACTIVE (NON-REACTIVE)
[2024-05-11 23:43] LABS: TS Negative Control Passed; TS Panel A 0; TS Panel B 2; TS Positive Control Passed; TSpotTB Negative (Negative)
== END 2024-05-09 08:50 | disposition home or self-care (01) ==
LOC: HO.HHCL 08:49
PROVIDERS: Visit Provider Family Medicine
DX: R42 Dizziness and giddiness (principal); R04.2 Hemoptysis; R12 Heartburn; D64.9 Anemia, unspecified; Z30.8 Encounter for other contraceptive management
CPT/HCPCS: 80048; 80061; 80076; 82306; 82607; 82728; 82746; 83036; 83540; 84439; 84443; 85025; 86481; 86592; 86704; 86706; 86708; 86803; 87340; 87389; 87491; 87591

== ENCOUNTER 2024-06-12 | Outpatient (REF) | payer MEDICAID, SELFPAY ==
--- OUTSIDE RECORDS SUMMARY | 2024-09-04 18:05 | XMS_ITS | Encounter Summary ---
Author Organization [employer] Address [address] [facility] [address] [place] [address] Care Team Providers Care Search Engine Marketing Specialist Name Role Phone Betty Rodriguez DO Primary Care Provider + [phone] Reason for Visit * Reason Comments Med Refill Encounter Details Date Type Department Care Team (Late st Contact Info) Description 08/31/2024 Refill [facility] MEDICINE [address] [place], [place] [phone] Betty Rodriguez DO [address] [place] [address] Social History Tobacco Use Types Packs/Day Years [...] with others, in a hotel, in a correction, living outside on the street, on a [...] Care Team (Late st Contact Info) Description 12/09/2024 1:00 PM EDT Clinical Support [facility] [address] [place] [address] documented as of this encounter Visit Diagnoses Not on filedocumented in this encounter Additional Health Concerns Assessment Noted Time PHQ-9 Depression Total Score: 3 06/10/19 25 1:40 PM EDT documented as of this encounter Care Teams Search Engine Marketing Specialist Relationship Specialty Start Date End Date Betty Rodriguez DO [address] [place] [address] PCP - General Family Medicine 05/08/24 documented as of this encounter
== END 2024-06-12 00:01 | disposition home or self-care (01) ==
LOC: HO.LNP
PROVIDERS: Visit Provider Advanced Practice Midwife
DX: Z13.89 Encounter for screening for other disorder (principal)
CPT/HCPCS: 88175

== ENCOUNTER 2024-06-12 16:37 | Outpatient (REF) | payer MEDICAID, SELFPAY ==
--- OUTSIDE RECORDS SUMMARY | 2024-06-12 17:12 | XMS_ITS | Encounter Summary ---
Author Organization [email or web address] Address [address] [facility] [address] [place] [address] Care Team Providers Care Ethanol Operator Name Role Phone Betty Rodriguez DO Primary Care Provider Reason for Referral * Consultation (Routine) - Authorized Specialty Diagnoses / Procedures Referred By Humberto andres Referred To Contact Optometry Diagnoses Decreased visual acuity Betty Rodriguez DO [address] [place] [address] Phone: tel: fax: [facility] OPTOMETRY [address] [place] [phone] Phone: tel: fax: Referral ID Status Reason Start Date Expiration Date Visits Requested Visits Authorized [id number] Authorized Consult and Treat 06/09/2024 06/09/2025 1 1 Encounter Details Date Type Department Care Team (Late st Contact Info) Description 06/09/2024 9:15 AM EDT Office Visit [facility] MEDICINE [address] [place] [address] Betty Rodriguez DO [address] [place] [address] Routine history and physical examination of adult (Primary Dx); Heartburn; Anemia, unspecified type; Dizziness; Hemoptysis; Phlegm in throat; Decreased visual acuity; Other insomnia; BMI 22.0-22.9, adult; Need for vaccination Social History Tobacco Use Types Packs/Day Years Used Date Smoking Tobacco: Never Smokeless Tobacco: Never Alcohol Use Standard Drinks/Week Comments Never 0 (1 standard drink = 0.6 oz pur e alcohol) Depression Answer Date Recorded Patient Health Questionnaire-9 Score 3 06/09/2024 Patient Health Questionnaire-9 Score 3 06/09/2024 Last PHQ-9: Questionnaire Data Not on file 0 06/09/2024 Housing Stability Answer Date Recorded What is your housing situation today? I do not have housing (Staying with others, in a hotel, in a skilled nursing, living outside on the street, on a beach, in a car, or in a park 06/09/[address] you li ve. Do you have problems with any of the following? None of the above 06/09/2024 Food Insecurity Answer Date Recorded Within the past 12 months, y ou worried that your food would run out before you got money to buy more: Never True 06/09/2024 Within the past 12 months,th e food you bought just didn't last and you didn't have enough money to get more: Never True Transportation Answer Date Recorded In the past 12 months, has l ack of transportation kept you from medical appts, meetings, work or from getting things needed for daily living? No 06/09/2024 Utilities Answer Date Recorded In the past 12 months, has t he electric, gas, oil or water company threatened to shut off services in your home? No 06/09/2024 Depression Answer Date Recorded Patient Health Questionnaire-2 Score 0 06/09/2024 Internet Access Answer Date Recorded Internet Access Q1 Yes 06/09/2024 Internet Access Q2 Not on file 06/09/2024 Comments Unknown Sex and Gender Information Value Date Recorded Sex Assigned at Female 05/08/2024 9:06 AM EST Legal Sex Female 1:46 PM EST Gender Identity Female 05/08/2024 9:06 AM EST Sexual Orientation Straight 05/08/2024 9: 06 AM EST documented as of this encounter Last Filed Vital Signs Vital Sign Reading Time Taken Comments Blood Pressure 110/70 06/09/2024 9:40 AM EDT Pulse 70 06/09/2024 9:40 AM EDT Temperature 36.8 ??C (98.3 ??F) 06/09/2024 9:40 AM ED T Respiratory Rate 19 06/09/2024 9:40 AM EDT Oxygen Saturation 100% 06/09/2024 9:40 AM EDT Inhaled Oxygen Concentration - - Weight 62.3 kg (137 lb 4 oz) 06/09/2024 9:40 AM EDT Height 167.6 cm (5' 6 ) 06/09/2024 9:40 AM EDT Body Mass Index 22.15 06/09/2024 9:40 AM EDT documented in this encounter Plan of Treatment Upcoming Encounters Date Type Department Care Team (Late st Contact Info) Description 07/09/2024 9:55 AM EDT Nurse Only [facility] MEDICINE [address] [place] [address] Scheduled Referrals Name Type Priority Associated Diagnoses Orde r Schedule Referral to [facility] Eye Care Outpatient Referral Routine Decreased visual acuity Expected: 06/09/2024 (Approximate), Expires: 06/09/2025 documented as of this encounter Visit Diagnoses Diagnosis Routine history and physical examination of adult- Primary Heartburn Anemia, unspecified type Dizziness Dizziness and giddiness Hemoptysis Phlegm in throat Decreased visual acuity Other insomnia BMI 22.0-22.9, adult Need for vaccination Need for prophylactic vaccination and inoculation against unspecified single disease documented in this encounter Additional Health Concerns Assessment Noted Time PHQ-9 Depression Total Score: 3 06/10/19 25 1:40 PM EDT documented as of this encounter Care Teams Ethanol Operator Relationship Specialty Start Date End Date Betty Rodriguez DO [address] [place] [address] PCP - General Family Medicine 05/08/24 documented as of this encounter
--- OUTSIDE RECORDS SUMMARY | 2024-06-12 17:12 | XMS_ITS | Encounter Summary ---
Author Organization [employer] Address [address] [facility] 7t [place] [address] Care Team Providers Care Motorcycle Delivery Driver Name Role Phone Betty Rodriguez DO Primary Care Provider [phone] Encounter Details Date Type Department Care Team (Latest Contact Info) Description 06/09/2024 Travel Social History Tobacco Use Types Packs/Day Years [...] with others, in a hotel, in a half-way, living outside on the street, on a [...] AM EST documented as of this encounter Plan of Treatment Upcoming Encounters Date Type Department Care Team (Late st Contact Info) Description 07/09/2024 9:55 AM EDT Nurse Only [facility] MED[facility] [address] [place] [address] documented as of this encounter Visit Diagnoses Not on filedocumented in this encounter Additional Health Concerns Assessment Noted Time PHQ-9 Depression Total Score: 3 06/10/19 25 1:40 PM EDT documented as of this encounter Care Teams Motorcycle Delivery Driver Relationship Specialty Start Date End Date Betty Rodriguez DO [address] [place] [address] PCP - General Family Medicine 05/08/24 documented as of this encounter
--- OUTSIDE RECORDS SUMMARY | 2024-06-12 17:12 | XMS_ITS | Encounter Summary ---
Author Organization [employer] Address [address] [facility] 7t [place] [address] Care Team Providers Care Gis Physical Scientist Name Role Phone Betty Rodriguez DO Primary Care Provider [phone] Reason for Visit * Reason Comments Gynecologic Exam Encounter Details Date Type Department Care Team ([facility] st Contact Info) Description 06/12/2024 9:30 AM EDT Office Visit [facility] MEDICINE [address] [place], [place] [phone] Mona Lin CNM [address] [place], [place] [phone] Cervical cancer screening (Primary Dx); Vaginal odor; Abnormal uterine bleeding Social History Tobacco Use Types Packs/Day Years [...] with others, in a hotel, in a penitentiary, living outside on the street, on a [...] Access Q2 Not on file 06/09/2024 Comments No Sex and Gender Information Value Date Recorded Sex Assigned at Female 05/08/2024 9:06 AM EST Legal Sex Female 1:46 PM EST Gender Identity Female 05/08/2024 9:06 AM EST Sexual Orientation Straight 05/08/2024 9: 06 AM EST documented as of this encounter Last Filed Vital Signs Vital Sign Reading Time Taken Comments Blood Pressure 111/78 06/12/2024 9:54 AM EDT Pulse 72 06/12/2024 9:54 AM EDT Temperature 36.6 ??C (97.9 ??F) 06/12/2024 9:54 AM ED T Respiratory Rate 20 06/12/2024 9:54 AM EDT Oxygen Saturation 99% 06/12/2024 9:54 AM EDT Inhaled Oxygen Concentration - - Weight 61.9 kg (136 lb 6.4 oz) 06/12/2024 9:54 A M EDT Height 168.9 cm (5' 6.5 ) 06/12/2024 9:54 AM EDT Body Mass Index 21.69 06/12/2024 9:54 AM EDT documented in this encounter Progress Notes * Mona Lin CNM - 06/12/2024 9:30 AM EDT Subjective Patient ID: Kaylee Palma is a 34 y.o. female who presents for pap Nexplanon inserted 05/2024. Here for pap. Received 1st HBV vaccine this week. Notes some spotting off/on since Nexplanon insertion. Not sexually active for at least a week after insertion. Happy with method other than bleeding. Noted vaginal odor recently, no other vaginal/urinary symptoms Patient seen in conjunction with Melissa Hill, [employer] student. I was present for and confirmed all pertinent elements in the history, exam, assessment of the patient, and the plan of care, and agree with all findings. Review of Systems Genitourinary: Positive for menstrual problem. Negative for dyspareunia, dysuria, frequency, genital sores, hematuria, pelvic pain, urgency, vaginal bleeding, vaginal discharge and vaginal pain. No abnormal pap, no breast pain, no breast mass, no nipple discharge Objective BP 111/78 (BP Location: Left arm, Patient Position: Sitting, BP Cuff Size: Adult) Pulse 72 Temp97.9 ??F (36.6 ??C) (Temporal) Resp 20 Ht 5' 6.5 (1.689 m) Wt 136 lb 6.4 oz (61.9 kg) LMP 04/23/2024 (Approximate) SpO2 99% BMI 21.69 kg/m?? Physical Exam Exam conducted with a submersible pilot present (Mona Lin CNM). Constitutional: Appearance: Normal appearance. Chest: Breasts: Right: Normal. No swelling, bleeding, inverted nipple, mass, nipple discharge, skin change or tenderness. Left: Normal. No swelling, bleeding, inverted nipple, mass, nipple discharge, skin change or tenderness. Genitourinary: General: Normal vulva. Labia: Right: No rash, tenderness, lesion or injury. Left: No rash, tenderness, lesion or injury. Vagina: Normal. No signs of injury and foreign body. No vaginal discharge, erythema, tenderness, bleeding or lesions. Cervix: No cervical motion tenderness, discharge, friability, lesion, erythema, cervical bleeding or eversion. Uterus: Normal. Not enlarged and not tender. Adnexa: Right adnexa normal and left adnexa normal. Right: No mass, tenderness or fullness. Left: No mass, tenderness or fullness. Comments: Scant blood in vagina Lymphadenopathy: Upper Body: Right upper body: No supraclavicular or axillary adenopathy. Left upper body: No supraclavicular or axillary adenopathy. Skin: Comments: Nexplanon palpable in left arm Neurological: Mental Status: She is alert. Psychiatric: Mood and Affect: Mood normal. Behavior: Behavior normal. Assessment/Plan Diagnoses and all orders for this visit: Cervical cancer screening - Pap Smear Cotest today. Repeat 5 y if normal/HPV neg. Reviewed normal side effects and danger signs. Expect irregular bleeding, or less likely, no bleeding at all. Report if implant not palpable. Report prolonged, frequent or heavy bleeding. Remove/replace Nexplanon by 5y from insertion date. May remove any time she wants prior to that. Vaginal odor - POCT fern test, vaginal fluid manually resulted No obvious vaginitis on wet mount. If bacterial vaginosis/vulvovaginal candidiasis on pap, will treat. Abnormal uterine bleeding Reviewed options for treatment. Will trial NSAIDs as rx'd. Consider oral contraceptive pill x 6 wksif not helpful and no contraindications. Other orders - ibuprofen (IBU) 800 MG tablet; 1 tablet every 8 hours with food x 7 days. documented in this encounter Plan of Treatment Upcoming Encounters Date Type Department Care Team (Late st Contact Info) Description 07/09/2024 9:55 AM EDT Nurse Only [facility] MEDICINE [address] [place] [phone] Scheduled Orders Name Type Priority Associated Diagnoses Orde r Schedule Pap Smear Pathology and Cytology Routine Cervical cancer screening Ordered: 06/12/2024 documented as of this encounter Procedures Procedure Name Priority Date/Time Associated Diagnosis Comments POCT WET MOUNT/RAQUEL Routine 06/12/2024 10 :43 AM EDT Vaginal odor documented in this encounter Results * POCT fern test, vaginal fluid manually resulted (06/12/2024 10:43 AM EDT) RAQUEL Prep Negative Comment:pH 5, neg whiff, neg clue, neg trich, neg yeast, neg wbc Vaginal Fluid Vaginal structure / Unknown 06/12/2024 10:43 AM EDT Mona Lin CNM POINT OF CARE TEST ENTER/ EDIT ORDERABLES Final Result documented in this encounter Visit Diagnoses Diagnosis Cervical cancer screening- Primary Screening for malignant neoplasm of the cervix Vaginal odor Unspecified symptom associated with female genital organs Abnormal uterine bleeding Unspecified disorder of menstruation and other abnormal bleeding from female genital tract documented in this encounter Additional Health Concerns Assessment Noted Time PHQ-9 Depression Total Score: 3 06/10/19 25 1:40 PM EDT documented as of this encounter Care Teams Gis Physical Scientist Relationship Specialty Start Date End Date Betty Rodriguez DO [address] [place] [id number] PCP - General Family Medicine 05/08/24 documented as of this encounter
--- OUTSIDE RECORDS SUMMARY | 2024-06-12 17:12 | XMS_ITS | Encounter Summary ---
Author Organization [employer] Address [address] [facility] 7[address] [place] [address] Care Team Providers Care Flanging Operator Name Role Phone Betty Rodriguez DO Primary Care Provider [phone] Encounter Details Date Type Department Care Team (Latest Contact Info) Description 06/12/2024 Travel Social History Tobacco Use Types Packs/Day [...] with others, in a hotel, in a long term, living outside on the street, on a [...] Description 07/09/2024 9:55 AM EDT Nurse Only [facility] [address] [place] [address] documented as of this encounter Visit Diagnoses Not on filedocumented in this encounter Additional Health Concerns Assessment Noted Time PHQ-9 Depression Total Score: 3 06/10/19 25 1:40 PM EDT documented as of this encounter Care Teams Flanging Operator Relationship Specialty Start Date End Date Betty Rodriguez DO [address] [place] [address] PCP - General Family Medicine 05/08/24 documented as of this encounter
--- OUTSIDE RECORDS SUMMARY | 2024-06-12 17:13 | XMS_ITS | Clinical Summary ---
Author Organization [employer] Address [address] [facility] [facility] [address] [place] [address] Care Team Providers Care Arboreal Scientist Name Role Phone Betty Rodriguez DO Primary Care Provider [phone] Allergies No known active allergies Medications ferrous sulfate 325 (65 Fe) MG tablet Take 1 tablet (325 mg) by mouth with breakfast. 30 tablet 06/10/19 Active omeprazole OTC (PriLOSEC OTC) 20 MG EC tablet Take 1 tablet (20 mg) by mouth before breakfast. Do not crush, chew, or split. 30 tablet 06/10/19 Active cholecalcifero l (Vitamin D-3) 50 MCG (2000 UT) capsule Take 1 capsule (50 mcg) by mouth Once per day. 30 capsule 06/10/19 25 Active Multiple Vitamin (multivitamin) tablet Take 1 tablet by mouth Once per day. 30 tablet 06/10/19 Active melatonin 5 MG tablet Take 1 tablet (5 mg) by mouth if needed at bedtime (insomnia). 30 tablet 06/10/19 25 Active cetirizine (ZyrTEC) 10 MG tablet Take 1 tablet (10 mg) by mouth Once per day. 30 tablet 06/10/19 026 Active fluticasone (Flonase) 50 MCG/ACT nasal spray Administer 2 sprays into each nostril Once per day. Shake gently. Before first use, prime pump. After use, clean tip and replace cap. 16 g 06/10/19 25 026 Active ibuprofen (IBU) 800 MG tablet 1 tablet every 8 hours with food x 7 days. 21 tablet 06/13/19 25 Active omeprazole OTC (PriLOSEC OTC) 20 MG EC tablet Take 1 tablet (20 mg) by mouth before breakfast. Do not crush, chew, or split. 30 tablet 3 05/08/19 25 025 Discontinued(Re order (will not trigger notification to Pharmacy)) Ferrous Sulfate (iron) 325 (65 Fe) MG tablet Take 1 tablet (325 mg) by mouth every other day. 30 tablet 05/16/19 25 025 Discontinued cholecalcifero l (Vitamin D-3) 50 MCG (1999) capsule Take 1 capsule (50 mcg) by mouth Once per day. 30 capsule 3 05/16/19 25 025 Discontinued(Re order (will not trigger notification to Pharmacy)) ferrous sulfate 325 (65 Fe) MG tablet TAKE 1 TABLET BY MOUTH EVERY OTHER DAY 45 tablet 05/16/19 25 025 Discontinued(Re order (will not trigger notification to Pharmacy)) ibuprofen (IBU) 800 MG tablet 1 tablet every 8 hours with food x 7 days. 21 tablet 06/13/19 25 025 Discontinued Hospital, Clinic, or Other Facility Administered Medication Ordered Dose Route Frequency Start Date End Date Status etonogestrel-eluting 68 mg contraceptive implant 1 eachIndications:Family planning counseling 1 each [place] Once 05/15/2024 05/15/2024 Ended Active Problems Problem Noted Date Diagnosed Date Anemia 06/09/2024 Chronic gastroesophageal reflux disease 06/10/19 25 Healthcare maintenance 06/09/2024 Vitamin D deficiency 06/09/2024 Encounters Date Type Department Care Team Description 06/12/2024 9:30 AM EDT Office Visit [address] [address] Mona Lin CNM Cervical cancer screening (Primary Dx); Vaginal odor; Abnormal uterine bleeding 06/12/2024 Travel 06/09/2024 9:15 AM EDT Office Visit [address] [address] Betty Rodriguez DO Routine history and physical examination of adult (Primary Dx); Heartburn; Anemia, unspecified type; Dizziness; Hemoptysis; Phlegm in throat; Decreased visual acuity; Other insomnia; BMI 22.0-22.9, adult; Need for vaccination 06/09/2024 Travel 06/02/2024 Patient Outreach [facility] [place] [address] Betty Rodriguez DO Pre-visit Planning (Pre-visit planning - LVM ) 05/23/2024 Population Health Risk Score [facility] () [address] [address] Provider, Population Health Generic 05/15/2024 10:00 AM EST Office Visit [facility] [place] [address] Mona Lin CNM Family planning counseling (Primary Dx) 05/15/2024 Refill [facility] [place] [address] Mona Lin CNM 05/15/2024 Travel 05/08/2024 9:20 AM EST Office Visit [facility] [place] [address] Betty Rodriguez DO Dizziness (Primary Dx); Hemoptysis; Heartburn; Anemia, unspecified type; Encounter for other contraceptive management from Last 3 Months Immunizations Name Administration Dates Next Due Hep B, adult 06/09/2024 Family History Medical History Relation Name Comments No Known Problems Father No Known Problems Mother Relation Name Status Comments Father Alive Mother Alive Social History Tobacco Use Types Packs/Day Years Used Date Smoking Tobacco: Never Smokeless Tobacco: Never Tobacco Cessation:Counseling Given: Not Answered Alcohol Use Standard Drinks/Week Comments Never 0 [...] with others, in a hotel, in a assisted, living outside on the street, on a [...] Mass Index 21.69 06/12/2024 9:54 AM EDT Plan of Treatment Upcoming Encounters Date Type Department Care Team (Late st Contact Info) Description 07/09/2024 9:55 AM EDT Nurse Only [facility] [address] [place] [phone] Health Maintenance Due Date Last Done Comments Alcohol/Substance Use Screening 2001 DTaP/Tdap/Td Vaccines (1 - Tdap) 2008 Pap Smear 2010 Cervical Cancer Screening 2019 HPV/Cotest 2019 COVID-19 Vaccine (1 - 202-2 5 season) 2023 Influenza Vaccine (#1) 2023 Hepatitis B Vaccines (2 of 3 - 19+ 3-dose series) 07/07/2024 06/09/2024 Depression Screening 06/09/2025 06/09/2024, 06/09/2024 SDOH Screening 06/09/2025 06/09/2024 Family Planning (PISQ) 06/12/2025 06/12/2024 Tobacco Screening 06/12/2025 06/12/2024 Zoster Vaccines (1 of 2) 2039 RSV Patients and Patients Aged 60 years or older (1 - 1-dose 75+ series) 2064 HIV Screening Completed 05/09/2024 Hepatitis C Screening Completed 05/09/2024 HIB Vaccines Aged Out No longer eligi [...] age to complete this topic Pneumococcal Vaccine: Pediatrics (0 to 5 Years) and At-Risk Patients (6 to 49) Years) Aged Out No longer eligible b ased on patient's age to complete this topic RSV under 20 months Aged Out No longe r eligible based on patient's age to complete this topic Rotavirus Vaccines Aged Out No longer eligible based on patient's age to complete this topic Procedures Procedure Name Priority Date/Time Associated Diagnosis Comments POCT WET MOUNT/RAQUEL Routine 06/12/2024 10 :43 AM EDT Vaginal odor POCT , URINE Routine 05/15/2024 10:15 AM EST Family planning counseling SONAR WATCHSTANDER INSERTION/REMOVAL OF CONTRACEPTIVE CAPSULE Routine 05/15/2024 10:15 AM EST Family planning counseling CBC WITH AUTO DIFFERENTIAL Routine 05/09/2024 8:58 AM EST Dizziness Hemoptysis Heartburn Anemia, unspecified type Encounter for other contraceptive management IRON AND TOTAL IRON BINDING CAPACITY Routine 05/09/2024 8:58 AM EST Dizziness Hemoptysis Heartburn Anemia, unspecified type Encounter for other contraceptive management FERRITIN Routine 05/09/2024 8:58 AM EST Dizziness Hemoptysis Heartburn Anemia, unspecified type Encounter for other contraceptive management VITAMIN B12/FOLATE, SERUM PANEL Routine 05/09/2024 8:58 AM EST Dizziness Hemoptysis Heartburn Anemia, unspecified type Encounter for other contraceptive management T-SPOT(R).TB Routine 05/09/2024 8:58 AM EST Dizziness Hemoptysis Heartburn Anemia, unspecified type Encounter for other contraceptive management HEPATITIS B CORE AB TOTAL Routine 05/09/2024 8:58 AM EST Dizziness Hemoptysis Heartburn Anemia, unspecified type Encounter for other contraceptive management HEPATITIS A ANTIBODY, TOTAL Routine 05/09/2024 8:58 AM EST Dizziness Hemoptysis Heartburn Anemia, unspecified type Encounter for other contraceptive management HEPATITIS B SURFACE ANTIBODY, QUALITATIVE Routine 05/09/2024 8:58 AM EST Dizziness Hemoptysis Heartburn Anemia, unspecified type Encounter for other contraceptive management RPR (MONITOR) W/REFL TITER Routine 05/09/2024 8:58 AM EST Dizziness Hemoptysis Heartburn Anemia, unspecified type Encounter for other contraceptive management HEPATITIS C AB W/REFL TO HCV RNA, QN, PCR Routine 05/09/2024 8:58 AM EST Dizziness Hemoptysis Heartburn Anemia, unspecified type Encounter for other contraceptive management HIV 1/2 ANTIGEN/ANTIBODY, FOURTH GENERATION W/RFL Routine 05/09/2024 8:58 AM EST Dizziness Hemoptysis Heartburn Anemia, unspecified type Encounter for other contraceptive management HEPATITIS B SURFACE ANTIGEN, EIA Routine 05/09/2024 8:58 AM EST Dizziness Hemoptysis Heartburn Anemia, unspecified type Encounter for other contraceptive management BASIC METABOLIC PANEL Routine 05/09/2024 8:58 AM EST Dizziness Hemoptysis Heartburn Anemia, unspecified type Encounter for other contraceptive management HEMOGLOBIN A1C Routine 05/09/2024 8:58 AM EST Dizziness Hemoptysis Heartburn Anemia, unspecified type Encounter for other contraceptive management HEPATIC FUNCTION PANEL Routine 05/09/2024 8:58 AM EST Dizziness Hemoptysis Heartburn Anemia, unspecified type Encounter for other contraceptive management VITAMIN D,25-OH,TOTAL,IA Routine 05/09/2024 8:58 AM EST Dizziness Hemoptysis Heartburn Anemia, unspecified type Encounter for other contraceptive management TSH Routine 05/09/2024 8:58 AM EST Dizziness Hemoptysis Heartburn Anemia, unspecified type Encounter for other contraceptive management LIPID PANEL, STANDARD Routine 05/09/2024 8:58 AM EST Dizziness Hemoptysis Heartburn Anemia, unspecified type Encounter for other contraceptive management T4, FREE Routine 05/09/2024 8:58 AM EST Dizziness Hemoptysis Heartburn Anemia, unspecified type Encounter for other contraceptive management CHLAMYDIA/N. GONORRHOEAE RNA, TMA, UROGENITAL Routine 05/09/2024 8:58 AM EST Dizziness Hemoptysis Heartburn Anemia, unspecified type Encounter for other contraceptive management from Last 3 Months Results * POCT fern test, vaginal fluid manually resulted (06/12/2024 10:43 AM EDT) RAQUEL Prep Negative Comment:pH 5, neg whiff, neg clue, neg trich, neg yeast, neg wbc Vaginal Fluid Vaginal structure / Unknown 06/12/2024 10:43 AM EDT Mona Lin CNM POINT OF CARE TEST ENTER/ EDIT ORDERABLES Final Result * Insertion/Removal of Contraceptive Capsule (05/15/2024 10:15 AM EST) Narrative Mona Lin CNM - 05/15/2024 10:15 AM EST Mona Lin CNM ? 05/15/2024 12:12 PM Insertion/Removal of Contraceptive Capsule Date/Time: 05/15/2024 10:15 AM Performed by: Mona Lin CNM Authorized by: Mona Lin CNM ?? Confirmed correct patient, procedure, site, and patient consented: Yes ?? Participating Staff: ??Mona Lin CNM Participating Staff: ??Melissa Hill RN Consent: ??Consent obtained: ??Verbal and written ??Consent given by: ??Patient ??Procedural risks and benefits discussed: Yes ?Patient questions answered: yes ?Patient agrees, verbalizes understanding, and wants to proceed: yes ?Educational handouts given: yes ?Instructions and paperwork completed: yes ?? Indication: ??Indication: insertion of non-biodegradable drug delivery implant ?? Pre-procedure: ??Pre-procedure timeout performed: yes ?Prepped with: povidone-iodine ?Local anesthetic: 2% 2ml lidocaine. ??The site was cleaned and prepped in a sterile fashion: yes ?? Procedure: ??Procedure: ??Insertion ??Left/right: ??Left ??Preloaded contraceptive capsule trocar was placed subdermally: yes ?Visualization of implant was obtained: yes ?Contraceptive capsule was inserted and trocar removed: yes ?Visualization of notch in stylet and palpation of device: yes ?Palpation confirms placement by provider and patient: yes ?Site was closed with steri-strips and pressure bandage applied: yes ?? Mona Lin CNM IN CLINIC/BEDSIDE ORDERAB LES Final Result * POCT Urine (05/15/2024 10:15 AM EST) Preg Test, Ur Negative Negative, Indeterminate, None Detected, Invalid, Specimen unsatisfactory for evaluation, Weakly Positive QC Media Lot # [id number] Lot# Expiration Date [id number] Urine 05/15/2024 10:1 5 AM EST Mona Lin CNM POINT OF CARE TEST ENTER/ EDIT ORDERABLES Final Result * (ABNORMAL) Vitamin D, 25-Hydroxy, Total, Immunoassay (05/09/2024 8:58 AM EST) Pathologist [facility] Vitamin D 25-OH Total 15.5(L) >30 ng/mL [facility] Comment:Health Based Referen ce Values*< 20 ng/mL Vydlllbbo65-17 ng/mL Insufficient> 30 ng/mL Sufficient*Angie WERNER. N Engl J Med. 2007;357:266-280Care must be taken in interpreting Vitamin D results fromdifferent laboratories and methodologies. Published datademonstrated that results from patients undergoinghemodialysis may show a negative bias when tested withvarious automated 25-OH vitamin D assays when compared toLC-MS/MS.When testing samples from patients whose predominant form ofVitamin D is Vitamin D2, such as patients receiving VitaminD2 supplementation, results that are subtherapeutic shouldbe confirmed with another method such as LC-MS/MS. Blood Venous blood specimen / Unknown 05/09/2024 8:58 AM EST 05/09/2024 10:54 AM EST Betty Rodriguez DO LAB BLOOD ORDERABLES Final R esult [facility] [address] [place] [phone] * Vitamin B12 (Cobalamin) and Folate Panel, Serum (05/09/2024 8:58 AM EST) Pathologist [facility] Vitamin B12 278 200 - 900 pg/mL [facility] Comment:NORMAL 200-900 PG/ML INDETERMINATE 160-199 PG/ML DEFICIENT < 160 PG/ML Folate 9.1 > or = 4.0 ng/mL [facility] Comment:Reference Values:> o r = 4.0 ng/mL< 4.0 ng/mL suggests folate deficiency Methotrexate, aminopterin and folinic acid(leucovorin) are chemotherapeutic agents whose molecularstructures are similar to folate; therefore, the Architectfolate assay cannot be used for patients using these drugs. Blood 05/09/2024 8:58 AM EST 05/09/2024 10:54 AM EST Betty Rodriguez DO LAB BLOOD ORDERABLES Final R esult [facility] [address] [place] [phone] * T-SPOT??.TB (05/09/2024 8:58 AM EST) Pathologist [facility] T Spot TB Negative Negative [facility] Comment:A negative test resu lt does not exclude the possibilityof exposure to or infection with Mycobacteriumtuberculosis (M. tuberculosis). Patients with recentexposure to TB infected individuals exhibiting anegative T-SPOT.TB result should be considered forretesting within 6 weeks or if other relevant clinicalsymptoms indicate. Results from T-SPOT.TB testing mustbe used in conjunction with each individual'sepidemiological history, current medical status,and results of other diagnostic evaluations.The T-SPOT.TB test is qualitative and results arereported as positive, borderline, or negative, giventhat the test controls perform as expected. In linewith the Centers for Disease Control and Prevention's2010 recommendation to report quantitative measurementsalongside the qualitative result, the laboratoryprovides spot counts for informational purposes only.The T-SPOT.TB test should not be interpreted as aquantitative test. TS PANEL A 0 [facility] TS PANEL B 2 [facility] Negative Control Passed [facility] Positive Control Passed [facility] Comment:For additional infor mation, please refer [email or web address].[email or web address]faq/XSW888(This link is being provided for informational/educational purposes only.)THIS TEST WAS PERFORMED AT:[id number] [place] [address]ASDHIMYJACOBY MARES MD,PHD 05/09/2024 8:58 AM EST 05/09/2024 10:54 AM EST us Betty Rodriguez DO LAB BLOOD ORDERABLES Final R esult [facility] [address] [place] [address] [phone] * (ABNORMAL) CBC auto differential (05/09/2024 8:58 AM EST) White Blood Count 3.3(L) 4.8 - 10.8 X10*3/uL [facility] Red Blood Count 4.03(L) 4.20 - 5.50 X10*6/uL [facility] Hemoglobin 9.3(L) 12.0 - 16.0 g/dl [facility] Hematocrit 30.9(L) 37.0 - 47.0 % [facility] Mean Corpuscular Volume 76.7(L) 80.0 - 98.0 fL [facility] Mean Corpuscular Hemoglobin 23.1(L) 27.0 - 33.0 pg [facility] Mean Corpuscular HGB Conc 30.1(L) 31.0 - 35.0 g/dl [facility] Red Cell Distribution Width 17.4(H) 11.0 - 16.0 % [facility] Platelet Count 370 160 - 400 X10*3/uL [facility] Mean Platelet Volume 9.8 9.4 - 12.3 fL [facility] Neutrophils Percent Auto 31.0(L) 45 - 73 % [facility] Imm Gran Pct Auto 0.0 0.0 - 0.4 % [facility] Lymphocytes Percent Auto 54.1(H) 20 - 40 % [facility] Monocytes Percent Auto 10.1 2 - 11 % [facility] Eosinophils Percent Auto 2.4 0 - 4 % [facility] Basophils Percent Auto 2.4(H) 0 - 2 % [facility] NRBC Pct Auto 0.0 0.0 - 0.2 /100WBC [facility] Neutrophils Absolute Auto 1.0(L) 2.0 - 8.3 x10*3/uL [facility] Imm Gran Abs Auto 0.00 0.00 - 0.03 X10*3/uL [facility] Lymphocytes Absolute Auto 1.8 1.2 - 4.9 X10*3/uL [facility] Monocytes Absolute Auto 0.3 0.1 - 1.2 X10*3/uL [facility] Eosinophils Absolute Auto 0.1 0.0 - 0.4 X10*3/uL [facility] Basophils Absolute Auto 0.1 0.0 - 0.2 X10*3/uL [facility] NRBC Abs Auto 0.000 0.0 - 0.012 X10*3/uL [facility] Blood Venous blood specimen / Unknown 05/09/2024 8:58 AM EST 05/09/2024 10:54 AM EST Betty Rodriguez DO LAB BLOOD ORDERABLES Final R esult [facility] [address] [place] [phone] * Hepatitis C Antibody with Reflex to HCV, RNA, Quantitative, Real-Time PCR (05/09/2024 8:58 AM EST) Hepatitis C Antibody Nonreactive Nonreactive [facility] Comment:Antibodies to HCV no t detected; does not exclude early acuteHCV infection. Blood Venous blood specimen / Unknown 05/09/2024 8:58 AM EST 05/09/2024 10:54 AM EST Betty Michael DO LAB BLOOD ORDERABLES Final R esult Performing Organization Address [facility] Co de Phone Number [facility] [address] [place] [phone] * (ABNORMAL) Iron And Total Iron Binding Capacity (05/09/2024 8:58 AM EST) [facility] Iron 30 30 - 160 mcg/dL [facility] Total Iron Binding Capacity 368 228 - 428 mcg/dL [facility] Percent Iron Saturation 8(L) 15 - 50 % [facility] Unsaturated Iron Binding 338 ug/dL [facility] Blood Venous blood specimen / Unknown 05/09/2024 8:58 AM EST 05/09/2024 10:54 AM EST Betty Michael DO LAB BLOOD ORDERABLES Final R esult Performing Organization Address [facility] Co de Phone Number [facility] [address] [place] [phone] * Hepatitis A Antibody, Total (05/09/2024 8:58 AM EST) [facility] Hepatitis A Antibody IgG REACTIVE Nonreactive [facility] Comment:The presence of IgG anti-HAV implies past HAV infection(recent or distant) or vaccination against HAV. Blood Venous blood specimen / Unknown 05/09/2024 8:58 AM EST 05/09/2024 10:54 AM EST Betty Singhtim DO LAB BLOOD ORDERABLES Final R esult Performing Organization Address [facility] Co de Phone Number [facility] [address] [place] [phone] * Chlamydia/N. Gonorrhoeae RNA, TMA, Urogenitial (05/09/2024 8:58 AM EST) [facility] CT PCR NOT DETECTED Not Detect. [facility] Comment:A not detected test result does not exclude the possibilityof infection because test results can be affected byimproper specimen collection, concurrent antibiotic therapy,or the number of organisms in the specimen which may bebelow the sensitivity of the test. As with many diagnostictests, results from the Xpert CT/NG assay should beinterpreted in conjunction with other laboratory andclinical data available to the clinician.Xpert CT/NG performance has not been evaluated in patientsless than 14 years of age. The assay should not be used forthe evaluationof suspected sexual abuse or for other medico-legalindications. Additional testing is recommended in anycircumstance when false positive or false negative resultscould lead to adverse medical, social or psychologicalconsequences. NG PCR NOT DETECTED Not Detect. [facility] Comment:A not detected test result does not exclude the possibilityof infection because test results can be affected byimproper specimen collection, concurrent antibiotic therapy,or the number of organisms in the specimen which may bebelow the sensitivity of the test. As with many diagnostictests, results from the Xpert CT/NG assay should beinterpreted in conjunction with other laboratory andclinical data available to the clinician.Xpert CT/NG performance has not been evaluated in patientsless than 14 years of age. The assay should not be used forthe evaluationof suspected sexual abuse or for other medico-legalindications. Additional testing is recommended in anycircumstance when false positive or false negative resultscould lead to adverse medical, social or psychologicalconsequences. Urine Urethral structure / Unknown 05/09/2024 8:58 AM EST 05/09/2024 10:52 AM EST Narrative [facility] - 05/09/2024 3:29 PM EST Urine us Betty Rodriguez DO LAB MICROBIOLOGY - GENERAL O RDERABLES Final Result [facility] [address] [place] [phone] * Hepatitis B surface antigen, EIA (05/09/2024 8:58 AM EST) Hepatitis B Surface Ag Negative Negative [facility] Blood Venous blood specimen / Unknown 05/09/2024 8:58 AM EST 05/09/2024 10:54 AM EST us Betty Rodriguez DO LAB BLOOD ORDERABLES Final R esult Performing Organization Address [facility] Co de Phone Number [facility] [address] [place] [phone] * Hepatitis B Core Antibody, Total (05/09/2024 8:58 AM EST) Hepatitis B Core Antibody Nonreactive Nonreactive [facility] Blood Venous blood specimen / Unknown 05/09/2024 8:58 AM EST 05/09/2024 10:54 AM EST us Betty Rodriguez DO LAB BLOOD ORDERABLES Final R esult Performing Organization Address [facility] Phone Number [facility] [address] [place] [phone] * RPR (Monitor) with Reflex to??Titer (05/09/2024 8:58 AM EST) RPR (Monitor) w/Refl Titer NON-REACTI VE NON-REACT FERNY [facility] Comment:THIS TEST WAS PERFOR MED AT:[facility] [address] [id number] MCBRIDE MD Rapid Plasma Reagin Ab Titer TNP [facility] Blood Venous blood specimen / Unknown 05/09/2024 8:58 AM EST 05/09/2024 10:54 AM EST Betty Rodriguez DO LAB BLOOD ORDERABLES Final R esult Performing Organization Address [facility] Co de Phone Number [facility] [address] [place] [phone] * HIV-1/2 Antigen and Antibodies, Fourth Generation, with Reflexes (05/09/2024 8:58 AM EST) Pathologist [facility] HIV AB/AG Nonreactive Nonreactive [facility] Comment:HIV-1 p24 Ag and/or HIV-1/HIV-2 Ab not detected.A test result that is nonreactive does not exclude thepossibility of exposure to or infection with HIV-1 and/orHIV-2. Nonreactive results in this assay for individualswith prior exposure to HIV-1 and/or HIV-2 may be due toantigen and antibody levels that are below the limit ofdetection of this assay.The [employer] HIV Ag/Ab Combo assay result andsupplemental assay results should be interpreted inconjunction with the patient's clinical presentation,history and other laboratory results. If the results areinconsistent with clinical evidence, additional testing issuggested to confirm the result. Blood Venous blood specimen / Unknown 05/09/2024 8:58 AM EST 05/09/2024 10:54 AM EST Betty Rodriguez LAB BLOOD ORDERABLES Final R esult Performing Organization Address [facility]/ZIP Co de Phone Number [facility] [address] [place] [address] [phone] * Hepatitis B Surface Antibody, Qualitative (05/09/2024 8:58 AM EST) Pathologist [facility] ~Hepatitis B Surface Antibody NONREACTIVE Nonreactive [facility] Comment:Nonreactive: < 8.00 mIU/mL Blood Venous blood specimen / Unknown 05/09/2024 8:58 AM EST 05/09/2024 10:54 AM EST Betty Nervogridtim [employer] LAB BLOOD ORDERABLES Final R esult Performing Organization Address City/[facility]/ZIP Co de Phone Number [facility] [address] [place] [phone] * TSH (05/09/2024 8:58 AM EST) Pathologist [facility] Thyroid Stimulating Hormone 2.66 0.32 - 4.0 uIU/mL [facility] Comment:Note: A sustained TS H level above 2.5 uIU/mL may warrant further investigation. TSH 3rd Generation ([facility]) Blood Venous blood specimen / Unknown 05/09/2024 8:58 AM EST 05/09/2024 10:54 AM EST Betty Singhtim DO LAB BLOOD ORDERABLES Final R esult Performing Organization Address City/[facility]/ZIP Co de Phone Number [facility] [address] [place] [phone] * T4, Free (05/09/2024 8:58 AM EST) Free T4 (Free Thyroxine) 0.99 0.71 - 1.85 ng/dL [facility] Blood Venous blood specimen / Unknown 05/09/2024 8:58 AM EST 05/09/2024 10:54 AM EST Betty Michael DO LAB BLOOD ORDERABLES Final R esult Performing Organization Address City/[facility]/ZIP Co de Phone Number [facility] [address] [place] [phone] * Hemoglobin A1c (05/09/2024 8:58 AM EST) Hemoglobin A1c 5.3 <6.0 % [facility] Comment:Hemoglobin A1C Refer ence Range Adults: 4.8 - 6.0 % Non diabetic: < 6.0 % Goal: < 7.0 %Additional Action Suggested: > 8.0 %Note: Hemoglobin A1c results are invalid for patients with abnormal amounts of HbF. Blood transfusions may impact the HbA1c concentration in the patient sample. Estimated Average Glucose 105 mg/dL [facility] Comment:eAG = Estimated ave rage glucose which is %A1C expressed asaverage glucose, using the formula of the L6A-GeiuzkrShdfskx Glucose study (ADAG), Diabetes Care, Vol.31,#8,2007 Blood Venous blood specimen / Unknown 05/09/2024 8:58 AM EST 05/09/2024 10:54 AM EST Betty Rodriguez DO LAB BLOOD ORDERABLES Final R esult Performing Organization Address City/[facility] Co de Phone Number [facility] [address] [place] [phone] * (ABNORMAL) Ferritin (05/09/2024 8:58 AM EST) Ferritin 4(L) 10 - 122 ng/mL [facility] Blood Venous blood specimen / Unknown 05/09/2024 8:58 AM EST 05/09/2024 10:54 AM EST us Betty Rodriguez DO LAB BLOOD ORDERABLES Final R esult Performing Organization Address [facility] Co de Phone Number [facility] [address] [place] [phone] * (ABNORMAL) Hepatic Function Panel (05/09/2024 8:58 AM EST) Bilirubin, Total 0.5 0.0 - 1.0 mg/dL [facility] Bilirubin, Direct 0.2 0.0 - 0.5 mg/dL [facility] Aspartate Amino Transferase 28 5 - 31 U/L [facility] Alanine Aminotransferase 19 0 - 31 U/L [facility] Total Protein 8.3(H) 6.5 - 8.0 g/dL [facility] Albumin Level 4.4 3.5 - 5.0 g/dL [facility] Alkaline Phosphatase 99 39 - 117 U/L [facility] Blood Venous blood specimen / Unknown 05/09/2024 8:58 AM EST 05/09/2024 10:54 AM EST Betty Rodriguez DO LAB BLOOD ORDERABLES Final R esult Performing Organization Address City/[facility] Co de Phone Number [facility] [address] [place] [phone] * Lipid Panel, Standard (05/09/2024 8:58 AM EST) Triglycerides 41 <150 mg/dL [facility] Comment:Desirable Triglyceri de: less than 150 mg/dLBorderline High Triglyceride 150-199 mg/dLHigh Triglyceride: 200-499 mg/dLVery High Triglyceride: greater than or equal to 5OO mg/dL Cholesterol 136 <200 mg/dL [facility] Comment:Desirable Cholestero l: less than 200 mg/dLBorderline High Cholesterol: 200-239 mg/dLHigh Cholesterol: greater than 239 mg/dL LDL Cholesterol Calculated 70 <100 mg/dL [facility] Comment:Desirable LDL: less than 100 mg/dLNear Optimal/Above Optimal LDL: 110- 129 mg/dLBorderline High LDL: 130-159 mg/dLHigh LDL: 160-189 mg/dLVery High LDL: greater than or equal to 190 mg/dL HDL Cholesterol 58 >40 mg/dL [facility] Comment:Desirable HDL: great er than 40 mg/dL Note: This HDL assay may give artificially low results in patients with liver disease. Blood Venous blood specimen / Unknown 05/09/2024 8:58 AM EST 05/09/2024 10:54 AM EST us Betty Rodriguez DO LAB BLOOD ORDERABLES Final R esult [facility] [address] [place] [phone] * (ABNORMAL) Basic Metabolic Panel (05/09/2024 8:58 AM EST) Sodium 140 135 - 145 mmol/L [facility] Potassium 3.9 3.3 - 5.1 mmol/L [facility] Chloride 108 96 - 108 mmol/L [facility] Carbon Dioxide 25 22 - 29 mmol/L [facility] Anion Gap 11(L) 12 - 20 [facility] Urea Nitrogen (BUN) 8(L) 9 - 16 mg/dL [facility] Creatinine, Serum 0.61 0.5 - 1.4 mg/dL [facility] Estimated Glomerular Filt Rate >60 [facility] Comment:Chronic Kidney Disea se: Estimated GFR < 60 mL/min/[id number] Kidney Disease: Estimated GFR < 15 mL/min/1.73m2 Glucose 87 60 - 115 mg/dL [facility] Calcium 9.2 8.4 - 10.2 mg/dL [facility] Blood Venous blood specimen / Unknown 05/09/2024 8:58 AM EST 05/09/2024 10:54 AM EST us Betty Rodriguez DO LAB BLOOD ORDERABLES Final R esult [facility] [address] [place] [phone] from Last 3 Months Insurance [employer] Care Teams [employer] Scientist Relationship Specialty Start Date End Date Betty Rodriguez DO [address] [place] [address] PCP - General Family Medicine 05/08/24
[2024-06-19 10:23] LABS: HPV Genotype 16 Negative (Negative); HPV Genotype 18 Negative (Negative); HPV High Risk Negative (Negative)
== END 2024-06-12 16:38 | disposition home or self-care (01) ==
LOC: HO.HHCLNP 16:37
PROVIDERS: Visit Provider Advanced Practice Midwife
DX: Z12.4 Encounter for screening for malignant neoplasm of cervix (principal); Z11.51 Encounter for screening for human papillomavirus (HPV); Z97.5 Presence of (intrauterine) contraceptive device
CPT/HCPCS: 87626

== ENCOUNTER 2024-06-24 10:26 | Outpatient (AMB) | payer MEDICAID, SELFPAY ==
--- NOTE | 2024-06-24 10:09 | A.OFFVIS_ITS ---
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 She was referred by PCP for pulmonary evaluation for ongoing hemoptysis. She moved here from [facility] in 2023, now residing in [place]. She reports productive cough with clear sputum that is blood tinged for the past two months that has slowly decreased over time. She reports upon awakening has mucous in throat and when expectorates has thin, blood tinged mucous. She denies fevers, chills, night sweats or chest congestion that would suggest an infectious pr ocess. She denies any mouth pain, nasal congestion, post nasal drip. She denies wheezing, chest tightness. She denies any antibiotics for cough. Per referral she endorses dyspnea which is associated with dizziness secondary to positional changes, currently undergoing cardiac evaluation, however denies today. She denies prior h/o recurrent respiratory infections. She denies prior h/o asthma. PCP ordered CXR which was unremarkable and sent for CT chest which was scheduled for 06/04 however appears patient no showed. She was also sent for TB test which was negative. She denies symptoms suggestive of underlying autoimmune conditions including joint pain, joint swelling, or rashes. She denies family history of autoimmune conditions. She denies occupational exposures. She denies personal or family h/o DVT/PE. [facility] Social History (System 05/13/24 @ 08:43 by Eliane Ann) Household Members: Spouse and Children Housing: Apartment Alcohol intake: never Patient Tobacco Use Status: Never used Tobacco Current occupational status: unemployed Sexual orientation: Straight/Heterosexual Gender identity: Female Review of Systems Const Denies chills, Denies excessive sweating, Denies fever(s), Denies headache(s) and Denies night sweats Eyes Denies dry eyes, Denies irritation and Denies itchy eyes ENT Reports Normal hearing present, Denies headache(s), Denies nasal congestion, Denies nasal discharge, Denies post nasal drip and Denies sore throat Card Denies chest pain, Denies chest pain at rest, Denies chest pain with activity, Denies claudication, Denies leg edema, Denies dyspnea, Denies dyspnea on exertion, Denies orthopnea and Denies paroxysmal nocturnal dyspnea Resp Denies chest congestion, Denies pain on inspiration, Denies pain with cough, Denies dyspnea, Denies dyspnea on exertion, Denies stridor and Denies wheezing Musc Denies myalgias Neuro Reports Normal hearing present and Denies headache(s) Endo Denies excessive sweating Micheal/Lymph Denies lymphadenopathy Aller/Immun Denies itchy eyes, Denies seasonal rhinorrhea and Denies wheezing Physical Exam Vital Signs: Last Vital Signs Pulse 69 06/24/24 10:30 BP 102/64 06/24/24 10:30 Pulse Ox 100 06/24/24 10:30 Oxygen Delivery Method Room Air 06/24/24 10:30 BMI result Body Mass Index 22.6 Const General: cooperative, healthy appearing, comfortable, no acute distress, well developed and alert Orientation/consciousness: patient oriented x3 Limitations: no limitations HEENT Head: Yes normal to inspection, Yes normocephalic and Yes atraumatic Ears: hearing grossly normal bilaterally and external ears normal Eyes General: appearance normal, both eyes and all related structures Eyelids: Yes eyelids normal Sclerae: sclerae normal EOM: EOMs intact bilaterally Neck Neck: Yes normal visual inspection and Yes no lymphadenopathy Lymphatic: no lymphadenopathy noted Chest Chest palpation & inspection: normal inspection of the chest Resp Effort & Inspection: normal respiratory effort, able to speak in complete sentences, no audible wheezes, no cough, no stridor, not tachypneic, no tripod positioning and no use of accessory muscles Auscultation: clear to auscultation bilaterally Cardio Jugular venous distension: no JVD Rate: regular rate Rhythm: regular rhythm Skin Other: warm, dry General skin exam: no rashes or lesions noted Neuro General: patient oriented x3 Cranial nerves: Yes Normal hearing present Cognition (Neuro): normal cognition Gait exam (Neuro): Normal gait present Extrem General: Yes normal to inspection, Yes capillary refill normal, Yes no clubbing, cyanosis or edema and Yes no pedal edema Psych Appearance: grossly normal and well kempt Speech and movement: Normal speech and movement present and Clear speech present Affect: normal affect Attitude: cooperative Thought process: Normal thought process present Thought content: Normal thought content present Insight: Good insight present (Psych) Judgement: Good judgement present (Psych) Assessment & Plan Assessment & Plan (1) Hemoptysis: Code(s): R04.2 - Hemoptysis Category: Medical Plan Kaylee presents for pulmonary evaluation for ongoing small volume blood tinged sputum, unclear etiology. She denies any associated symptoms that would be suggestive of underlying infectious/inflammatory process. Will reenter CT order with IV contrast to assess for underlying parenchymal condition such as bronchiectasis contributing to symptoms. She is aware if large volume hemoptysis occurs to seek emergent care. All questions were answered and patient is in agreement of plan. Will follow up to review results or sooner if needed. Orders: Orders CT chest w IV con Today R04.2 - Hemoptysis Blood Urea Nitrogen Today Z01.818 - Encounter for other preprocedural examination Creatinine Today Z01.818 - Encounter for other preprocedural examination Coding Level of Care Code New Pt Level 3 (94448) Diagnoses Hemoptysis R04.2
[2024-06-24 10:30] VITALS: BP 102/64; PULSE 69; O2SAT 100; BMI 22.6
--- OUTSIDE RECORDS SUMMARY | 2024-06-24 12:32 | XMS_ITS | Clinical Summary ---
Author Organization [employer] Address [address] [facility] [address] [place] [address] Care Team Providers Care Polyethylene Bag Machine Operator Name Role Phone Betty Rodriguez DO Primary Care Provider Allergies No known active allergies Medications ferrous [...] order (will not trigger notification to Pharmacy)) cholecalcifero l (Vitamin D-3) 50 MCG (2000 [...] days. 21 tablet 06/13/19 25 025 Discontinued Active Problems Problem Noted Date Diagnosed Date Anemia 06/09/2024 Chronic gastroesophageal reflux disease 06/10/19 25 Healthcare maintenance 06/09/2024 Vitamin D deficiency 06/09/2024 Encounters Date Type Department Care Team Description 06/12/2024 9:30 AM EDT Office Visit [address] [address] Daiana Salgado CNM Cervical cancer screening (Primary Dx); Vaginal odor; Abnormal uterine bleeding 06/12/2024 Orders Only [address] [address] Daiana Salgado CNM 06/12/2024 Travel 06/09/2024 9:15 AM EDT Office Visit [address] [address] Betty Rodriguez DO Routine history and physical examination of adult (Primary Dx); Heartburn; Anemia, unspecified type; Dizziness; Hemoptysis; Phlegm in throat; Decreased visual acuity; Other insomnia; BMI 22.0-22.9, adult; Need for vaccination 06/09/2024 Travel 06/02/2024 Patient Outreach [address] [address] Betty Rodriguez DO Pre-visit Planning (Pre-visit planning - LVM ) 05/23/2024 Population Health Risk Score [facility] () Department [address] [place] [phone] Provider, Population Health Generic 05/15/2024 10:00 AM EST Office Visit [facility] [address] [place] [address] Daiana Salgado CNM Family planning counseling (Primary Dx) 05/15/2024 Refill [facility] [address] [place] [address] Daiana Salgado CNM 05/15/2024 Travel 05/08/2024 9:20 AM EST Office Visit [facility] [address] [place] [address] Betty Rodriguez DO Dizziness (Primary Dx); Hemoptysis; [...] with others, in a hotel, in a fdc, living outside on the street, on a [...] Description 07/09/2024 9:55 AM EDT Nurse Only [facility] [address] [place] [phone] Health Maintenance Due Date Last Done Comments Alcohol/Substance Use Screening 2001 DTaP/Tdap/Td Vaccines (1 - Tdap) 2008 COVID-19 Vaccine (2023-2 5 season) 2023 Influenza Vaccine (#1) 2023 Hepatitis B Vaccines (2 of 3 - 19+ 3-dose series) 07/07/2024 06/09/2024 Depression Screening 06/09/2025 06/09/2024, 06/09/2024 SDOH Screening 06/09/2025 06/09/2024 Family Planning (PISQ) 06/12/2025 06/12/2024 Tobacco Screening 06/12/2025 06/12/2024 Cervical Cancer Screening 06/12/2029 HPV/Cotest 06/12/2029 06/12/2024 Pap Smear 06/12/2029 06/12/2024 Zoster Vaccines (1 of 2) 2039 [...] 06/12/2024 10 :43 AM EDT Vaginal odor PAP SMEAR Routine 06/12/2024 12:00 AM EDT Cervical cancer screening HPV DNA, LOW/HIGH RISK Routine 06/12/2024 12:00 AM EDT POCT , URINE Routine 05/15/2024 10:15 AM EST Family planning counseling INSTRUCTIONAL SERVICES LIBRARIAN INSERTION/REMOVAL OF CONTRACEPTIVE CAPSULE Routine 05/15/2024 10:15 [...] structure / Unknown 06/12/2024 10:43 AM EDT Daiana Salgado [facility] POINT OF CARE TEST ENTER/ EDIT ORDERABLES Final Result * HPV DNA, Low/High Risk (06/12/2024 12:00 AM EDT) Pathologist [facility] HPV High Risk Negative Negative [facility] HPV Genotype 16 Negative Negative [facility] HPV Genotype 18 Negative Negative [facility] Comment:HPV testing performe d at [facility] (CLIA#[id number]), [address] [place] [address].Testing for HPV was performed using the [employer]0system. The presence of HPV in the female genital tract isassociated with a number of diseases, including cervicalcarcinoma. The HPV DNA high risk pool tests for HPV 31, 33,35, 39, 45, 51, 52, 56, 58, 59, 66 and 68. The testing forHPV 16 and 18 genotypes has also been performed. A positiveresult indicates detection of nucleic acid sequences fromone or more subtypes, whereas a negative result indicatessuch sequences were not detected. 06/12/2024 06/13/2024 6:1 5 AM EDT [facility] LAB BLOOD ORDERABLES Eileen l Result [facility] [address] [place] [phone] * Pap Smear (06/12/2024 12:00 AM EDT) Swab Cervix uteri structure / Unknown 06/12/2024 06/13/2024 6:15 AM EDT Narrative [facility] - 06/18/2024 10:48 AM EDT ----- ------- Name: Kaylee Khan ? Age/Sex: 34/F ? : 1990 Unit#: [id number] ?? Attend : ?Re06/12/24 ?Status: PRE REF ? Location: HO.LNP ?Disch: ? ----- ------- SPEC : [id number] ? RECD: 06/13/24 ? STATUS: ??SOUT ? REQ NUM: [id number] ? JAN: 06/12/24- ? SUBM DR: DAIANA SALGADO CNM ? ENTERED: ??06/13/24 ?SP TYPE: Pap Smr ?OTHR : ? ORDERED: ??Pap Smear ? Interpretation ?? Satisfactory for evaluation. ?? Negative for intraepithelial lesion or malignancy. ?? No endocervical cells seen. ?? Scant cellularity. ? HPV High Risk: ??Negative ? HPV Genotyping 16: ??Negative ?? HPV Genotyping 18: ??Negative ?Clinical Information LMP:Unknown date Previous PAP test:Unknown date/findings ? Material Received ?? ThinPrep-Cervical ----- ------- Signed (signature on file) JOI Krueger (ASCP) 06/18/24 1048 ? ----- ------- ? END OF REPORT ? us Daiana Salgado [facility] LAB CYTOLOGY ORDERABLES F inal Result [facility] [address] [place] [phone] [phone] * Insertion/Removal of Contraceptive Capsule (05/15/2024 10:15 AM EST) Daiana Roberts CNM - 05/15/2024 10:15 AM EST Daiana Salgado CNM ? 05/15/2024 12:12 PM Insertion/Removal of Contraceptive Capsule Date/Time: 05/15/2024 10:15 AM Performed by: Daiana Salgado CNM Authorized by: Daiana Salgado CNM ?? Confirmed correct patient, procedure, site, and patient consented: Yes ?? Participating Staff: ??Daiana Salgado CNM Participating Staff: ??Melissa Hill RN Consent: [...] steri-strips and pressure bandage applied: yes ?? us Daiana Salgado CNM IN CLINIC/BEDSIDE ORDERAB LES Final Result * POCT Urine (05/15/2024 10:15 AM EST) Preg Test, Ur Negative Negative, Indeterminate, None Detected, Invalid, Specimen unsatisfactory for evaluation, Weakly Positive QC Media Lot # [id number] Lot# Expiration Date [id number] Urine 05/15/2024 10:1 5 AM EST Daiana COHEN POINT OF CARE TEST ENTER/ EDIT ORDERABLES Final Result * (ABNORMAL) Vitamin D, 25-Hydroxy, Total, Immunoassay (05/09/2024 8:58 AM EST) Pathologist [facility] Vitamin D 25-OH Total 15.5(L) >30 ng/mL [facility] Comment:Health Based Referen ce Values*< 20 ng/mL Zipivmjjk00-29 ng/mL Insufficient> 30 ng/mL Sufficient*Angie WERNER. N [...] DO LAB BLOOD ORDERABLES Final R esult [facility] [address] [place] [phone] * Vitamin B12 (Cobalamin) and Folate Panel, Serum (05/09/2024 8:58 AM EST) Vitamin B12 278 200 - 900 pg/mL [facility] Comment:NORMAL 200-900 PG/ML INDETERMINATE 160-199 PG/ML DEFICIENT < 160 PG/ML Folate 9.1 > or = 4.0 ng/mL [facility] Comment:Reference Values:> o r = 4.0 ng/mL< 4.0 ng/mL suggests folate deficiency Methotrexate, aminopterin and folinic acid(leucovorin) are chemotherapeutic agents whose molecularstructures are similar to folate; therefore, the Architectfolate assay cannot be used for patients using these drugs. Blood 05/09/2024 8:58 AM EST 05/09/2024 10:54 AM EST us Betty Rodriguez DO LAB BLOOD ORDERABLES Final R esult [facility] [address] [place] [phone] * T-SPOT??.TB (05/09/2024 8:58 AM EST) T Spot TB Negative Negative [facility] Comment:A negative test resu lt does [...] as aquantitative test. TS PANEL A 0 [facility] TS PANEL B 2 [facility] Negative Control Passed [facility] Positive Control Passed [facility] Comment:For additional infor mattaisha, please refer [email or web address]/[email or web address](This link is being provided for informational/educational purposes only.)THIS TEST WAS PERFORMED AT:[id number] [place] [id number] MARES MD,PHD 05/09/2024 8:58 AM EST 05/09/2024 10:54 AM EST us Betty Rodriguez DO LAB BLOOD ORDERABLES Final R esult [facility] [address] [place] [phone] * (ABNORMAL) CBC auto differential (05/09/2024 8:58 AM EST) White Blood Count 3.3(L) 4.8 - 10.8 X10*3/uL [facility] Red Blood Count 4.03(L) 4.20 - 5.50 X10*6/uL [facility] Hemoglobin 9.3(L) 12.0 - 16.0 g/dl [facility] Hematocrit 30.9(L) 37.0 - 47.0 % [facility] Mean Corpuscular Volume 76.7(L) 80.0 - 98.0 fL [facility] Mean Corpuscular Hemoglobin 23.1(L) 27.0 - 33.0 pg [facility] Mean Corpuscular HGB Conc 30.1(L) 31.0 - 35.0 g/dl [facility] Red Cell Distribution Width 17.4(H) 11.0 - 16.0 % [facility] Platelet Count 370 160 - 400 X10*3/uL [facility] Mean Platelet Volume 9.8 9.4 - 12.3 fL [facility] Neutrophils Percent Auto 31.0(L) 45 - 73 % [facility] Imm Gran Pct Auto 0.0 0.0 - 0.4 % [facility] Lymphocytes Percent Auto 54.1(H) 20 - 40 % [facility] Monocytes Percent Auto 10.1 2 - 11 % [facility] Eosinophils Percent Auto 2.4 0 - 4 % [facility] Basophils Percent Auto 2.4(H) 0 - 2 % [facility] NRBC Pct Auto 0.0 0.0 - 0.2 /100WBC [facility] Neutrophils Absolute Auto 1.0(L) 2.0 - 8.3 x10*3/uL [facility] Imm Gran Abs Auto 0.00 0.00 - 0.03 X10*3/uL [facility] Lymphocytes Absolute Auto 1.8 1.2 - 4.9 X10*3/uL [facility] Monocytes Absolute Auto 0.3 0.1 - 1.2 X10*3/uL [facility] Eosinophils Absolute Auto 0.1 0.0 - 0.4 X10*3/uL [facility] Basophils Absolute Auto 0.1 0.0 - 0.2 X10*3/uL [facility] NRBC Abs Auto 0.000 0.0 - 0.012 X10*3/uL [facility] Blood Venous blood specimen / Unknown 05/09/2024 8:58 AM EST 05/09/2024 10:54 AM EST Betty Rodriguez DO LAB BLOOD ORDERABLES Final R [facility] Performing Organization Address City/[facility]/ZIP Co de Phone Number [facility] [address] [place] [phone] * Hepatitis C Antibody with Reflex to HCV, RNA, Quantitative, Real-Time PCR (05/09/2024 8:58 AM EST) Hepatitis C Antibody Nonreactive Nonreactive [facility] Comment:Antibodies to HCV no t detected; does not exclude early acuteHCV infection. Blood Venous blood specimen / Unknown 05/09/2024 8:58 AM EST 05/09/2024 10:54 AM EST Betty Rodriguez DO LAB BLOOD ORDERABLES Final R esult [facility] [address] [place] [phone] * (ABNORMAL) Iron And Total Iron Binding Capacity (05/09/2024 8:58 AM EST) [facility] Iron 30 30 - 160 mcg/dL [facility] Total Iron Binding Capacity 368 228 - 428 mcg/dL [facility] Percent Iron Saturation 8(L) 15 - 50 % [facility] Unsaturated Iron Binding 338 ug/dL [facility] Blood Venous blood specimen / Unknown 05/09/2024 8:58 AM EST 05/09/2024 10:54 AM EST Betty Rodriguez LAB BLOOD ORDERABLES Final R esult Performing Organization Address [facility] Co de Phone Number [facility] [address] [place] [phone] * Hepatitis A Antibody, Total (05/09/2024 8:58 AM EST) [facility] Hepatitis A Antibody IgG REACTIVE Nonreactive [facility] Comment:The presence of IgG anti-HAV implies past HAV infection(recent or distant) or vaccination against HAV. Blood Venous blood specimen / Unknown 05/09/2024 8:58 AM EST 05/09/2024 10:54 AM EST Betty Rodriguez LAB BLOOD ORDERABLES Final R esult Performing Organization Address City/[facility]/ZIP Co de Phone Number [facility] [address] [place] [phone] * Chlamydia/N. Gonorrhoeae RNA, TMA, Urogenitial (05/09/2024 8:58 AM EST) [facility] CT PCR NOT DETECTED Not Detect. [facility] Comment:A not detected test result does [...] psychologicalconsequences. NG PCR NOT DETECTED Not Detect. [facility] Comment:A not detected test result does [...] AM EST 05/09/2024 10:52 AM EST Narrative [facility] - 05/09/2024 3:29 PM EST Urine us Betty Rodriguez DO LAB MICROBIOLOGY - GENERAL O RDERABLES Final Result [facility] [address], [place] [phone] * Hepatitis B surface antigen, EIA (05/09/2024 8:58 AM EST) Hepatitis B Surface Ag Negative Negative [facility] Blood Venous blood specimen / Unknown 05/09/2024 8:58 AM EST 05/09/2024 10:54 AM EST us Betty Singhlolyrad DO LAB BLOOD ORDERABLES Final R esult Performing Organization Address City/[facility]/ZIP Co de Phone Number [facility] [address] [place] [phone] * Hepatitis B Core Antibody, Total (05/09/2024 8:58 AM EST) Hepatitis B Core Antibody Nonreactive Nonreactive [facility] Blood Venous blood specimen / Unknown 05/09/2024 8:58 AM EST 05/09/2024 10:54 AM EST Betty Singhlolyrad DO LAB BLOOD ORDERABLES Final R esult Performing Organization Address [facility] Co de Phone Number [facility] [address] [place] [phone] * RPR (Monitor) with Reflex to??Titer (05/09/2024 8:58 AM EST) RPR (Monitor) w/Refl Titer NON-REACTI VE NON-REACT FERNY [facility] Comment:THIS TEST WAS PERFOR MED AT:[id number] [place] [id number] MCBRIDE MD Rapid Plasma Reagin Ab Titer TNP [facility] Blood Venous blood specimen / Unknown 05/09/2024 8:58 AM EST 05/09/2024 10:54 AM EST us Betty Michael DO LAB BLOOD ORDERABLES Final R esult Performing Organization Address [facility]/ZIP Co de Phone Number [facility] [address] [place] [phone] * HIV-1/2 Antigen and Antibodies, Fourth Generation, with Reflexes (05/09/2024 8:58 AM EST) HIV AB/AG Nonreactive Nonreactive [facility] Comment:HIV-1 p24 Ag and/or HIV-1/HIV-2 Ab not detected.A test result that is nonreactive does not exclude thepossibility of exposure to or infection with HIV-1 and/orHIV-2. Nonreactive results in this assay for individualswith prior exposure to HIV-1 and/or HIV-2 may be due toantigen and antibody levels that are below the limit ofdetection of this assay.The [employer] HIV Ag/Ab Combo assay result andsupplemental assay results should be interpreted inconjunction with the patient's clinical presentation,history and other laboratory results. If the results areinconsistent with clinical evidence, additional testing issuggested to confirm the result. Blood Venous blood specimen / Unknown 05/09/2024 8:58 AM EST 05/09/2024 10:54 AM EST Betty Rodriguez LAB BLOOD ORDERABLES Final R esult Performing Organization Address [facility] Co de Phone Number [facility] [address] [place] [phone] * Hepatitis B Surface Antibody, Qualitative (05/09/2024 8:58 AM EST) ~Hepatitis B Surface Antibody NONREACTIVE Nonreactive [facility] Comment:Nonreactive: < 8.00 mIU/mL Blood Venous blood specimen / Unknown 05/09/2024 8:58 AM EST 05/09/2024 10:54 AM EST Betty Rodriguez LAB BLOOD ORDERABLES Final R esult Performing Organization Address [facility] Co de Phone Number [facility] [address] [place] [phone] * TSH (05/09/2024 8:58 AM EST) Thyroid Stimulating Hormone 2.66 0.32 - 4.0 uIU/mL [facility] Comment:Note: A sustained TS H level above 2.5 uIU/mL may warrant further investigation. TSH 3rd Generation ([facility]) Blood Venous blood specimen / Unknown 05/09/2024 8:58 AM EST 05/09/2024 10:54 AM EST Betty Michael DO LAB BLOOD ORDERABLES Final R esult Performing Organization Address City/[facility]/ZIP Co de Phone Number [facility] [address] [place] [phone] * T4, Free (05/09/2024 8:58 AM EST) Free T4 (Free Thyroxine) 0.99 0.71 - 1.85 ng/dL [facility] Blood Venous blood specimen / Unknown 05/09/2024 8:58 AM EST 05/09/2024 10:54 AM EST Betty Rodriguez DO LAB BLOOD ORDERABLES Final R esult Performing Organization Address City/[facility] Co de Phone Number [facility] [address] [place] [phone] * Hemoglobin A1c (05/09/2024 8:58 AM EST) Hemoglobin A1c 5.3 <6.0 % [facility] Comment:Hemoglobin A1C Refer ence Range Adults: 4.8 - 6.0 % Non diabetic: < 6.0 % Goal: < 7.0 %Additional Action Suggested: > 8.0 %Note: Hemoglobin A1c results are invalid for patients with abnormal amounts of HbF. Blood transfusions may impact the HbA1c concentration in the patient sample. Estimated Average Glucose 105 mg/dL [facility] Comment:eAG = Estimated ave rage glucose which is %A1C expressed asaverage glucose, using the formula of the W1X-EnkgjozDlygcye Glucose study (ADAG), Diabetes Care, Vol.31,#8,Oct. 2007 Blood Venous blood specimen / Unknown 05/09/2024 8:58 AM EST 05/09/2024 10:54 AM EST Result [facility] Betty Singhlolyrad DO LAB BLOOD ORDERABLES Final R esult Performing Organization Address City/[facility]/ZIP Co de Phone Number [facility] [address] [place] [phone] * (ABNORMAL) Ferritin (05/09/2024 8:58 AM EST) Ferritin 4(L) 10 - 122 ng/mL [facility] Blood Venous blood specimen / Unknown 05/09/2024 8:58 AM EST 05/09/2024 10:54 AM EST Betty Singhtim Seanodes LAB BLOOD ORDERABLES Final R esult Performing Organization Address [facility] Co de Phone Number [facility] [address] [place] [phone] * (ABNORMAL) Hepatic Function Panel (05/09/2024 8:58 AM EST) Bilirubin, Total 0.5 0.0 - 1.0 mg/dL [facility] Bilirubin, Direct 0.2 0.0 - 0.5 mg/dL [facility] Aspartate Amino Transferase 28 5 - 31 U/L [facility] Alanine Aminotransferase 19 0 - 31 U/L [facility] Total Protein 8.3(H) 6.5 - 8.0 g/dL [facility] Albumin Level 4.4 3.5 - 5.0 g/dL [facility] Alkaline Phosphatase 99 39 - 117 U/L [facility] Blood Venous blood specimen / Unknown 05/09/2024 8:58 AM EST 05/09/2024 10:54 AM EST Betty Rodriguez DO LAB BLOOD ORDERABLES Final R esult Performing Organization Address City/[facility]/ZIP Co de Phone Number [facility] [address] [place] [phone] * Lipid Panel, Standard (05/09/2024 8:58 AM EST) Triglycerides 41 <150 mg/dL [facility] Comment:Desirable Triglyceri de: less than 150 mg/dLBorderline High Triglyceride 150-199 mg/dLHigh Triglyceride: 200-499 mg/dLVery High Triglyceride: greater than or equal to 5OO mg/dL Cholesterol 136 <200 mg/dL [facility] Comment:Desirable Cholestero l: less than 200 mg/dLBorderline High Cholesterol: 200-239 mg/dLHigh Cholesterol: greater than 239 mg/dL LDL Cholesterol Calculated 70 <100 mg/dL [facility] Comment:Desirable LDL: less than 100 mg/dLNear Optimal/Above Optimal LDL: 110- 129 mg/dLBorderline High LDL: 130-159 mg/dLHigh LDL: 160-189 mg/dLVery High LDL: greater than or equal to 190 mg/dL HDL Cholesterol 58 >40 mg/dL [facility] Comment:Desirable HDL: great er than 40 mg/dL Note: This HDL assay may give artificially low results in patients with liver disease. Blood Venous blood specimen / Unknown 05/09/2024 8:58 AM EST 05/09/2024 10:54 AM EST us Betty Rodriguez DO LAB BLOOD ORDERABLES Final R esult [facility] [address] [place] [phone] * (ABNORMAL) Basic Metabolic Panel (05/09/2024 8:58 AM EST) Sodium 140 135 - 145 mmol/L [facility] Potassium 3.9 3.3 - 5.1 mmol/L [facility] Chloride 108 96 - 108 mmol/L [facility] Carbon Dioxide 25 22 - 29 mmol/L [facility] Anion Gap 11(L) 12 - 20 [facility] Urea Nitrogen (BUN) 8(L) 9 - 16 mg/dL [facility] Creatinine, Serum 0.61 0.5 - 1.4 mg/dL [facility] Estimated Glomerular Filt Rate >60 [facility] Comment:Chronic Kidney Disea se: Estimated GFR < 60 mL/min/1.78a9Bzaauc Kidney Disease: Estimated GFR < 15 mL/min/1.73m2 Glucose 87 60 - 115 mg/dL [facility] Calcium 9.2 8.4 - 10.2 mg/dL [facility] Blood Venous blood specimen / Unknown 05/09/2024 8:58 AM EST 05/09/2024 10:54 AM EST us Betty Rodriguez DO LAB BLOOD ORDERABLES Final R esult [facility] [address] [place] [address] [phone] from Last 3 Months Insurance [facility] C3 Care Teams Polyethylene Bag Machine Operator Relationship Specialty Start Date End Date Betty Rodriguez DO [address] [place] [address] PCP - General Family Medicine 05/08/24
--- OUTSIDE RECORDS SUMMARY | 2024-06-24 12:32 | XMS_ITS | Encounter Summary ---
Author Organization [employer] Address [address] [facility] [address] [place] [address] Care Team Providers Care Art Supervisor Name Role Phone Betty Rodriguez DO Primary Care Provider [phone] Encounter Details Date Type Department Care Team (Late st Contact Info) Description 06/12/2024 Orders Only [facility] MEDICINE [address] [place] [address] Mona Lin CNM [address] [place] [address] Social History Tobacco Use Types Packs/Day Years [...] with others, in a hotel, in a senior living, living outside on the street, on a [...] Upcoming Encounters Date Type Department Care Team ([facility] st Contact Info) Description 07/09/2024 9:55 AM EDT Nurse Only [facility] MEDICINE [address] [place] [phone] documented as of this encounter Procedures Procedure Name Priority Date/Time Associated Diagnosis Comments HPV DNA, LOW/HIGH RISK Routine 06/12/2024 12:00 AM EDT documented in this encounter Results * HPV DNA, Low/High Risk (06/12/2024 12:00 AM EDT) HPV High Risk Negative Negative [facility] HPV Genotype 16 Negative Negative [facility] HPV Genotype 18 Negative Negative [facility] Comment:HPV testing performe d at [facility] (CLIA#[id number]), [address] [place] [address].Testing for HPV was performed using the [employer] 6800system. The presence of HPV in the female [...] detected. 06/12/2024 06/13/2024 6:1 5 AM EDT us Mona Lin CNM LAB BLOOD ORDERABLES Eileen corey Result [facility] [address] [place] [address] [phone] documented in this encounter Visit Diagnoses Not on filedocumented in this encounter Additional Health Concerns Assessment Noted Time PHQ-9 Depression Total Score: 3 06/10/19 1:40 PM EDT documented as of this encounter Care Teams Art Supervisor Relationship Specialty Start Date End Date Betty Rodriguez DO [address] [place] [phone] PCP - General Family Medicine 05/08/24 documented as of this encounter
== END 2024-06-24 11:57 | disposition home or self-care (01) ==
LOC: HO.HPSW 10:26
PROVIDERS: PCP Family Medicine; Visit Provider Nurse Practitioner Family
DX: R04.2 Hemoptysis (principal)
CPT/HCPCS: 99203

== ENCOUNTER → 2024-06-24 10:26 | Outpatient (BNVA) | payer MEDICAID, SELFPAY | PROVIDERS: PCP Family Medicine; Visit Provider Nurse Practitioner Family | DX: Z01.811 Encounter for preprocedural respiratory examination (principal); R04.2 Hemoptysis | CPT/HCPCS: 99212 ==